=== PATIENT | female | born 1960 | race African-American/Black ===

== ENCOUNTER 2017-06-07 10:12 | Day surgery (SDC) | payer OTHER ==
[2017-06-07 11:32] VITALS: BMI 45.7
[2017-06-07 16:01] VITALS: TEMP 98
[2017-06-07 16:14] VITALS: PULSE 69
[2017-06-07 17:44] VITALS: BP 131/68
== END 2017-06-07 17:46 | disposition home or self-care (01) ==
LOC: JASU-SURG 10:12
PROVIDERS: ATTEND Urology
PROC: 0TF38ZZ Fragmentation in Right Kidney Pelvis, Via Natural or Artificial Opening Endoscopic (ICD-10-PCS; principal; 2017-06-07)
PROC: 0T768DZ Dilation of Right Ureter with Intraluminal Device, Via Natural or Artificial Opening Endoscopic (ICD-10-PCS; 2017-06-07)
DX: N20.0 Calculus of kidney (principal)
CPT/HCPCS: 76000-TC-FY; 94760

== ENCOUNTER 2017-11-01 08:46 | Day surgery (SDC) | payer OTHER ==
[2017-10-28 16:17] VITALS: BMI 46.7
[2017-11-01] MEDS ORDERED: MIDAZOLAM HCL 2 MG/2 ML SINGLE DOSE VIAL ONE ×2 (11:05→11:16)
[2017-11-01] MEDS ORDERED: DEXAMETHASONE SOD PHOSPHATE 4 MG/1 ML VIAL ONE (11:15)
--- NOTE | 2017-11-01 11:48 | OP ---
Operative Note - Note: Operative Date: 11/01/17 Pre-Operative Diagnosis: Right kidney stone Operation: Right ESWL Findings: 20 mm Right kidney lower pole stone Post-Operative Diagnosis: Same as Pre-op Surgeon: 2,Program Planners Anesthesia: Fractional Estimated Blood Loss (mls): 0
[2017-11-01] MEDS ORDERED: ONDANSETRON 4 MG/2 ML VIAL ONE (13:09)
[2017-11-01 14:03] VITALS: BP 110/76; PULSE 73; TEMP 97.8
--- NOTE | 2017-11-01 21:48 | OP ---
DATE OF OPERATION: 11/01/2017 PREOPERATIVE DIAGNOSIS: Right renal stone. POSTOPERATIVE DIAGNOSIS: Right renal stone. PROCEDURE: Right extracorporeal shock wave lithotripsy. ATTENDING: Govind Raman MD ANESTHESIA: Fractional. DESCRIPTION OF OPERATION: The patient was brought in the operating room and placed in supine position on the operating room table. Ultrasonography and fluoroscopy were performed. A 20-mm right lower pole stone was identified. Shock wave lithotripsy was then performed; 3000 impulses at 18 joules of power were administered to the stone. Excellent fragmentation of the stone was noted under real-time ultrasonography and fluoroscopy. No complications were noted. The disposition of the patient was to the recovery room. GOVIND RAMAN M.D. [id number]
== END 2017-11-01 14:12 | disposition home or self-care (01) ==
LOC: JASU-SURG 08:46
PROVIDERS: ATTEND Urology
PROC: 0TF3XZZ Fragmentation in Right Kidney Pelvis, External Approach (ICD-10-PCS; principal; 2017-11-01 10:15)
DX: N20.0 Calculus of kidney (principal)
CPT/HCPCS: 94760

== ENCOUNTER 2018-03-21 09:38 | Day surgery (SDC) | payer OTHER ==
[2018-03-21 09:54] VITALS: BMI 45.5
[2018-03-21] MEDS ORDERED: MIDAZOLAM HCL 2 MG/2 ML SINGLE DOSE VIAL ONE (12:15)
[2018-03-21] MEDS ORDERED: VECURONIUM BROMIDE 10 MG VIAL ONE (12:21)
[2018-03-21] MEDS ORDERED: PROPOFOL 20 ML ONE (12:21)
[2018-03-21] MEDS ORDERED: GENTAMICIN SO4 80 MG/2 ML VIAL ONE ×2 (12:38→12:44)
[2018-03-21] MEDS ORDERED: AMPICILLIN NA/SULBACTAM NA 1.5 GM VIAL ONE (12:38)
[2018-03-21] MEDS ORDERED: GENTAMICIN SO4 80 MG/2 ML VIAL IVPB ONE (12:41)
[2018-03-21] MEDS ORDERED: AMPICILLIN NA/SULBACTAM NA 1.5 GM VIAL IVPB ONE (12:41)
[2018-03-21] MEDS ORDERED: NEOSTIGMINE METHYLSULFATE 0.5 MG/1 ML - 10 ML MDV ONE (13:46)
[2018-03-21] MEDS ORDERED: ONDANSETRON 4 MG/2 ML VIAL IVPUSH PRN (14:06)
[2018-03-21] MEDS ORDERED: LACTATED RINGERS SOLUTION 1,000 ML IV SCH (14:15)
[2018-03-21] MEDS ORDERED: oxyCODONE HCL 5 MG TABLET PO PRN (16:20)
[2018-03-21] MEDS ORDERED: oxyCODONE HCL 5 MG TABLET ONE (16:25)
--- NOTE | 2018-03-21 16:26 | OP ---
Operative Note - Note: Operative Date: 03/21/18 Pre-Operative Diagnosis: right renal stones Operation: cystoscopy/laser lithotripsy of bladder stone/right ureteroscopic laser lithotripsy/right ureteral stent exchange Findings: bladder stone around distal stent measuring 5+ cm multiple large renal stones Post-Operative Diagnosis: Other (large bladder stone) Surgeon: James Marie Anesthesia: General Specimens Removed: bladder stones and right ureteral stent Drains & Tubes with Location: right ureteral stent Operative Report Dictated: Yes
[2018-03-21 16:47] VITALS: TEMP 97.8
[2018-03-21 17:56] VITALS: BP 137/78; PULSE 73
--- NOTE | 2018-03-21 19:55 | OP ---
DATE OF OPERATION: 03/21/2018 PREOPERATIVE DIAGNOSIS: Right renal stone. POSTOPERATIVE DIAGNOSIS: Right renal stone with bladder stone. ATTENDING: Govind Raman MD ANESTHESIA: General. DESCRIPTION OF OPERATION: The patient presents with a history of a staghorn calculus. The patient is status post lithotripsy and previous laser lithotripsy of the renal stone. Patient presents for another laser lithotripsy of the bulky stone. Patient understands all risks and benefits. The patient is brought in the operating room, placed in supine position on the operating room table. Anesthesia and preoperative antibiotics consisting of gentamicin and ampicillin are administered. The patient is then placed in the dorsal lithotomy position and prepped and draped in the usual sterile manner. Cystoscopy is performed, and a 5-plus-cm bladder stone is noted. This stone emanates from the distal J of the stent. The stone is extremely hard and required laser lithotripsy. The holmium laser was utilized, and the stone was lithotripsied and specimen sent for evaluation to Pathology. At this point, the right ureteral stent was brought out with mild resistance. A wire was then passed into the kidney under fluoroscopic visualization. A flexible ureteroscope was then taken to the level of the filling defects in the kidney. Multiple large stones were noted. The patient apparently makes continual stones with the catheter in place. Laser lithotripsy was started. However, due to the friability of the jones of the pelvis, visualization was poor. It was decided to leave the patient with a stent and to send the patient to a tertiary center for evaluation for percutaneous nephrolithotomy. Patient will be discharged home on p.o. antibiotics. There were no complications noted. Patient tolerated the procedure very well. GOVIND RAMAN M.D. [id number]
--- NOTE | 2018-03-23 17:06 | PATH ---
Surgical Pathology Report Patient Name: HAYDEE JASMINE [facility]. Rec. #: [id number] /Age/Gender: 1960 (Age: 58) / F Account: [id number] Location: [facility] SURGICAL Taken: 03/21/2018 Received: 03/22/2018 Reported: 03/23/2018 Physicians: James Marie Specimen(s) Received A: BLADDER CALCULI B: OLD STENT RIGHT SIDE Clinical History Right kidney stones/bladder stones Final Diagnosis A. BLADDER STONE, LASER LITHOTRIPSY: BLADDER CALCULI. MACROSCOPIC DIAGNOSIS. B. OLD STENT, RIGHT SIDE, REMOVAL: CONSISTENT WITH URETERAL STENT. MACROSCOPIC DIAGNOSIS. Electronically Signed Abeba Saavedra M.D. Gross Description A. Received fresh labeled "bladder stone," is a 4.0 x 2.5 x 0.5 cm aggregate of hawley, irregular to fragmented calculi. The specimen is sent for chemical analysis. B. Received fresh labeled "old stent right side," is a 33 cm in length blue-green, coiled portion of tubing, consistent with a ureteral stent. No soft tissue is present. No sections are submitted, gross only. /03/22/2018 saudi03/22/2018
[2018-03-28 12:16] LABS: URIC ACID 100 % (.); WEIGHT 2355.8 mg (.)
== END 2018-03-21 17:56 | disposition home or self-care (01) ==
LOC: JASU-SURG 09:38
PROVIDERS: ATTEND Urology
PROC: 0TCB8ZZ Extirpation of Matter from Bladder, Via Natural or Artificial Opening Endoscopic (ICD-10-PCS; principal; 2018-03-21 10:00)
DX: N20.0 Calculus of kidney (principal); N21.0 Calculus in bladder
CPT/HCPCS: 36415; 76000-TC-FY; 82360; 88300-TC; 94760

== ENCOUNTER 2019-02-03 10:02 | Inpatient (IN) | payer OTHER ==
--- NOTE | 2019-02-03 10:15 | PDOC ---
History of Present Illness <Angie Márquez - Last Filed: 02/03/19 16:18> - General History Source: Patient Exam Limitations: No Limitations - History of Present Illness Initial Comments: 59-year-old female with past medical history of hypertension, hyperlipidemia, MS (2010, no stent), CVA (2010, no deficits), right ureter stent, nephrolithiasis requiring lithotripsy presented to the emergency department for sub sternal chest pain beginning today, associated with bilateral lower extremity swelling and increasing shortness of breath and dyspnea on exertion for three months. Patient reported she has noticed for the last two weeks her shortness of breath has been increasing, to the point that even walking downhill is hard for her. She reported she saw her primary care doctor times when we could go for The swelling, was told she may have problems with her veins , and receive a referral to have a study performed, which she has not had performed yet. She reported that when she developed a chest pain and shortness of breath combine today, she was prompted to come to the emergency department. She also mentioned that she noticed master her right breast times one week ago, but she notices after her primary care appointment. She requested to have a mammogram performance. She also requested to have a CAT scan of her abdomen performed, as she has an outpatient CAT scan to planned by her urologist. She denied flank pain, abdominal pain. She reported she has had hematuria x1 month. Pt reported drinking 1 glass of wine a night. ROS General: denied fever, chills, generalized weakness. HEENT: denied sore throat, rhinorrhea, ear pain. Cardiovascular: admitted to chest pain, lower extremity swelling. denied palpitations, syncope, diaphoresis. Respiratory: admitted to shortness of breath, MCGRAW, orthopnea. denied cough, sputum production, hemoptysis. Gastrointestinal: denied abdominal pain, nausea, vomiting, diarrhea, constipation, blood in stool. Genitourinary: denied dysuria, increased urinary frequency, hematuria, urinary incontinence, flank pain. Back: denied back pain. Musculoskeletal: denied joint pain, muscle pain, joint swelling. Neurological: denied headache, dizziness, numbness, tingling, weakness. Integumentary: denied rash, laceration, abrasion. Hematologic/Lymphatic: denied bruising or bleeding. PE Constitutional: Well-nourished, Well-developed, appearing stated age. Obese. HEENT: head is normocephalic, atraumatic. EOMI. PERRLA. Neck: supple. Full ROM. Cardiovascular: systolic murmur, pt reported no history of murmur. regular heart rhythm. no pericardial friction rub. Respiratory: clear to auscultation bilaterally. slight expiratory wheeze. no crackles, rhonchi. no stridor. Chest: 2x2 cm hard nontender mass to right breast in the upper inner quadrant. no masses palpated in left breast. Gastrointestinal: soft, nontender. normal bowel sounds. no rebound, guarding, masses. Extremities: peripheral pulses intact. 4+ pitting edema bilaterally. calf tenderness bilaterally. Neurological: CN 2-12 grossly intact. moves all four extremities. Psych: awake, alert, oriented x3. follows commands. answers questions appropriately. <Johanne Vences - Last Filed: 02/03/19 16:28> - General Chief Complaint: Shortness of Breath Stated Complaint: Shortness of Breath Time Seen by Provider: 02/03/19 10:14 Past History <Angie Márquez - Last Filed: 02/03/19 16:18> - Psycho Social/Smoking Cessation Hx Smoking Status: No Smoking History: Former smoker Have you smoked in the past 12 months: No Number of Cigarettes Smoked Daily: 0 If you are a former smoker, when did you quit?: 8yrs Hx Alcohol Use: Yes (wine/social) Drug/Substance Use Hx: No Substance Use Type: Alcohol Hx Substance Use Treatment: No <Johanne Vences - Last Filed: 02/03/19 16:28> - Past Medical History Allergies/Adverse Reactions: Allergies Allergy/AdvReac Type Severity Reaction Status Date / Time No Known Allergies Allergy Verified 02/03/19 10:22 Home Medications: Ambulatory Orders Amlodipine Besylate 10 mg PO DAILY 06/04/17 Multivitamin [One-Daily Multi-Vitamin] 1 each PO DAILY 03/21/18 Atorvastatin Ca [Lipitor] 40 mg PO HS 02/03/19 Hydralazine HCl 30 mg PO DAILY 02/03/19 *Physical Exam - Vital Signs Last Vital Signs Temp Pulse Resp BP Pulse Ox 98.7 F 90 18 133/58 L 99 02/03/19 10:16 02/03/19 14:40 02/03/19 14:40 02/03/19 14:40 02/03/19 14:40 <YulisaAngie - Last Filed: 02/03/19 16:18> Procedures - Bedside Ultrasound Bedside Ultrasound: Cardiac Remarks: Bedside POCUS Cardiac US showed good global squeeze, no RV dilation, no septal bowing. Bedside POCUS Lung US showed positive lung sliding bilaterally. Right lung jasmine showed few B-lines, none seen on the left. Negative spine sign bilaterally. US were performed by Dr. Farnsworth, PGY2 EM Resident, and Dr. Márquez, US Fellowship Trained EM Attending. <Johanne Vences - Last Filed: 02/03/19 16:28> Heart Score/ECG Review - History History: Slightly suspicious - Electrocardiogram EKG: Non specific repolarization disturbance - Age Age: 45-65 - Risk Factors Risk Factors Heart Score: Yes Hx Hypercholesterolemia, Yes Hx Hypertension, Yes Hx Diabetes, Yes Hx Obesity Based on the list above the patient has:: >/=3 risk factors or Hx atherosclerotic disease - Troponin Troponin: </= normal limit - Score Heart Score - Total: 4 <Johanne Vences - Last Filed: 02/03/19 16:28> ED Treatment Course - LABORATORY CBC & Chemistry Diagram: 02/03/19 10:20 02/03/19 10:20 - ADDITIONAL ORDERS Additional order review: Laboratory Results 02/03/19 02/03/19 02/03/19 10:20 10:20 10:20 PT with INR 12.50 INR 1.06 PTT (Actin FS) 30.0 Sodium 138 Potassium 3.8 Chloride 99 Carbon Dioxide 30 Anion Gap 10 BUN 5.4 L Creatinine 0.6 Est GFR (CKD-EPI)AfAm 114.82 Est GFR (CKD-EPI)NonAf 99.07 Random Glucose 82 Calcium 8.7 Phosphorus 2.8 Magnesium 2.2 Total Bilirubin 1.8 H AST 572 H ALT 190 H Alkaline Phosphatase 423 H Troponin I < 0.02 B-Natriuretic Peptide Total Protein 7.4 Albumin 2.8 L TSH 6.09 H Free T4 0.87 02/03/19 10:18 PT with INR INR PTT (Actin FS) Sodium Potassium Chloride Carbon Dioxide Anion Gap BUN Creatinine Est GFR (CKD-EPI)AfAm Est GFR (CKD-EPI)NonAf Random Glucose Calcium Phosphorus Magnesium Total Bilirubin AST ALT Alkaline Phosphatase Troponin I B-Natriuretic Peptide 158.1 H Total Protein Albumin TSH Free T4 02/03/19 10:20 RBC 3.15 L MCV 102.4 H MCHC 33.5 RDW 14.3 MPV 8.7 Neutrophils % 66.4 Lymphocytes % 18.4 Monocytes % 14.1 H Eosinophils % 0.4 Basophils % 0.7 - RADIOLOGY Radiology Studies Ordered: Category Date Time Status CHEST X-RAY PORTABLE* [RAD] Stat Radiology 02/03/19 10:24 Completed - Medications Given in the ED: ED Medications Discontinued Medications Generic Name Dose Route Start Last Admin Trade Name Adali PRN Reason Stop Dose Admin Aspirin 324 mg 02/03/19 11:11 02/03/19 11:23 Asa - PO 02/03/19 11:12 324 mg ONCE ONE Administration <Angie Márquez - Last Filed: 02/03/19 16:18> - LABORATORY CBC & Chemistry Diagram: 02/03/19 10:20 02/03/19 10:20 <Johanne Vences - Last Filed: 02/03/19 16:28> Medical Decision Making - Medical Decision Making 59 year old female with above PMH presented to ED for chest pain since this AM, associated with LE swelling/MCGRAW/orthopnea x3 months worsening over 2 weeks. Also c/o right breast mass. Initial Vital Signs Temp Pulse Resp BP Pulse Ox 98.7 F 99 H 20 137/71 90 L 02/03/19 10:16 02/03/19 10:16 02/03/19 10:16 02/03/19 10:16 02/03/19 10:16 Afebrile. Borderline tachycardia. No tachypnea. Hypertensive. Hypoxia on room air. -Pt placed on NC 2L with resolution of hypoxia Labs ordered: CBC, CMP, Troponin, BNP, TSH Imaging ordered: CTA chest, CXR, B/L duplex LE US Medications ordered: ASA 324 mg PO chew once EKG performed at 1012: rate 99, regular rhythm, left axis, normal intervals, QTc 444, no acute ST changes. CXR report: Name: HAYDEE JASMINE DEPARTMENT OF RADIOLOGY Phys: Angie Márquez MD : 1960 Age: 59 Sex: F [facility] Acct: [id number] Loc: [address] Exam Date: 02/03/19 Status: [place] Unit Number: [id number] EXAM#: TYPE/EXAM: RESULT: [id number] RAD/CHEST X-RAY PORTABLE* Evaluate for infection, edema. Semierect portable chest x-ray compared with October 05, 2009. Cardiomegaly. Left lower lung zone partially obscured by the cardiac silhouette. No evidence of effacement of the left diaphragm, blunting of the left costophrenic angle. Elevated right diaphragm. Mildly uncoiled thoracic aorta. No evidence of congestive changes, pulmonary infiltrates, pulmonary edema. No pneumothorax, or large pleural effusion is seen within limitation of examination. EKG leads are noted. The visualized osseous structures appear intact. Impression. Cardiomegaly. No evidence of pulmonary edema, CHF, pulmonary infiltrates. Reported By: Yousuf Lloyd MD 02/03/19 1049 02/03/19 11:51 Laboratory Last Values WBC 4.4 K/mm3 (4.0-10.0) 02/03/19 10:20 RBC 3.15 M/mm3 (3.60-5.2) L 02/03/19 10:20 Hgb 10.8 GM/dL (10.7-15.3) 02/03/19 10:20 Hct 32.2 % (32.4-45.2) L 02/03/19 10:20 MCV 102.4 fl (80-96) H 02/03/19 10:20 MCH 34.3 pg (25.7-33.7) H 02/03/19 10:20 MCHC 33.5 g/dl (32.0-36.0) 02/03/19 10:20 RDW 14.3 % (11.6-15.6) 02/03/19 10:20 Plt Count 218 K/MM3 (134-434) 02/03/19 10:20 MPV 8.7 fl (7.5-11.1) 02/03/19 10:20 Absolute Neuts (auto) 2.9 K/mm3 (1.5-8.0) 02/03/19 10:20 Neutrophils % 66.4 % (42.8-82.8) 02/03/19 10:20 Lymphocytes % 18.4 % (8-40) 02/03/19 10:20 Monocytes % 14.1 % (3.8-10.2) H 02/03/19 10:20 Eosinophils % 0.4 % (0-4.5) 02/03/19 10:20 Basophils % 0.7 % (0-2.0) 02/03/19 10:20 Nucleated RBC % 1 % (0-0) H 02/03/19 10:20 PT with INR 12.50 SEC (9.7-13.0) 02/03/19 10:20 INR 1.06 (0.83-1.09) 02/03/19 10:20 PTT (Actin FS) 30.0 SECONDS (25.2-36.5) 02/03/19 10:20 Sodium 138 mmol/L (136-145) 02/03/19 10:20 Potassium 3.8 mmol/L (3.5-5.1) 02/03/19 10:20 Chloride 99 mmol/L (98-107) 02/03/19 10:20 Carbon Dioxide 30 mmol/L (21-32) 02/03/19 10:20 Anion Gap 10 MMOL/L (8-16) 02/03/19 10:20 BUN 5.4 mg/dL (7-18) L 02/03/19 10:20 Creatinine 0.6 mg/dL (0.55-1.3) 02/03/19 10:20 Est GFR (CKD-EPI)AfAm 114.82 02/03/19 10:20 Est GFR (CKD-EPI)NonAf 99.07 02/03/19 10:20 Random Glucose 82 mg/dL (74-106) 02/03/19 10:20 Calcium 8.7 mg/dL (8.5-10.1) 02/03/19 10:20 Phosphorus 2.8 mg/dL (2.5-4.9) 02/03/19 10:20 Magnesium 2.2 mg/dL (1.8-2.4) 02/03/19 10:20 Total Bilirubin 1.8 mg/dL (0.2-1) H 02/03/19 10:20 AST 572 U/L (15-37) H 02/03/19 10:20 ALT 190 U/L (13-61) H 02/03/19 10:20 Alkaline Phosphatase 423 U/L (45-117) H 02/03/19 10:20 Troponin I < 0.02 ng/ml (0.00-0.05) 02/03/19 10:20 B-Natriuretic Peptide 158.1 pg/ml (5-125) H 02/03/19 10:18 Total Protein 7.4 g/dl (6.4-8.2) 02/03/19 10:20 Albumin 2.8 g/dl (3.4-5.0) L 02/03/19 10:20 TSH 6.09 uIU/ml (0.358-3.74) H 02/03/19 10:20 Labs ordered: Hepatitis Panel, Free T4 and Free T3, UA, UDS Imaging ordered: RUQ US 02/03/19 15:12 US report: Name: HAYDEE JASMINE DEPARTMENT OF RADIOLOGY Phys: Johanne Vences RESIDENT : 1960 Age: 59 Sex: F [facility] Acct: [id number] Loc: [address] Exam Date: 02/03/19 Status: [place] [address] Unit Number: [id number] EXAM#: TYPE/EXAM: RESULT: [id number] US/DUPLEX VASCUL US-2LEGS Bilateral lower extremity swelling, left more the right Bilateral leg color Doppler and duplex venous ultrasound Grayscale, pulsed Doppler and color Doppler interrogation of both lower extremities deep venous system was performed. The common femoral vein , femoral vein, popliteal and posterior tibial vein were identified, bilaterally with a normal phasic wave form, adequate compressibility and adequate response to augmentation. Visualized portion of the greater saphenous and deep femoral vein are patent No Nicole's cyst is identified in the popliteal fossa, bilaterally. There is soft tissue swelling in the popliteal fossa, bilaterally. Impression: There is no evidence of deep venous thromboses in both lower extremities. Reported By: Joseph Wilson MD 02/03/19 1448 02/03/19 15:17 RUQ US report: Name: HAYDEE JASMINE DEPARTMENT OF RADIOLOGY Phys: Johanne Vences RESIDENT : 1960 Age: 59 Sex: F [facility] Acct: [id number] Loc: [facility] [address] [place] [address] Exam Date: 02/03/19 Status: [place] [address] Unit Number: [id number] EXAM#: TYPE/EXAM: RESULT: [id number] US/ABDOMEN US -LIMITED Elevated liver function tests Right upper abdomen ultrasound. Examination is limited due to the patient's body habitus. The liver measures 19.6 cm in sagittal length with a moderately dense and coarse echotexture. Gallbladder is adequately distended without intraluminal stones or thickening of its wall. No intra or extrahepatic bile duct dilatation is seen. The right kidney measures 12 cm sagittal length with a nonobstructing stone in its lower pole measuring 1.3 x 0.9 cm. Limited visualization of the pancreas. Visualized portion of the proximal abdominal aorta and inferior vena cava appear unremarkable. Normal flow in the main portal vein. IMPRESSION: Hepatomegaly with fatty infiltration versus hepatic disease. Please correlate with liver enzymes. No gallstones identified. Nonobstructing right renal lower pole stone measuring 1.3 x 0.9 cm. Limited visualization of the pancreas. Reported By: Joseph Wilson MD 02/03/19 8405 CTA chest report: Name: HAYDEE JASMINE DEPARTMENT OF RADIOLOGY Phys: Johanne Vences RESIDENT : 1960 Age: 59 Sex: F [facility] Acct: [id number] Loc: [facility] [address] [place] [address] Exam Date: 02/03/19 Status: [place] [address] Unit Number: [id number] EXAM#: TYPE/EXAM: RESULT: [id number] CT/CHEST CTA Chest pain. Tachycardia. History of right breast mass. Hypoxia CT scan of the chest following intravenous contrast. A post intravenous contrast CT angiogram of the chest was performed utilizing pulmonary embolus protocol. Coronal/ sagittal reconstruction images were obtained. 94 cc of Omnipaque 350 was intravenously injected No prior CT scan of the chest is available for comparison. Compared to prior chest x-ray done earlier on the same date. No gross filling defect is seen within the main pulmonary artery and its proximal branches, bilaterally. The thoracic and visualized portion of the upper abdominal aorta is normally enhanced without evidence of aneurysmal dilatation or dissection. The heart is borderline in size. No gross mediastinal or hilar enlarged lymph nodes are identified. There are minimal bibasal atelectatic changes. The lung is otherwise clear. No pneumothorax or pleural effusion is seen, bilaterally. In the included upper abdomen, the liver is borderline in size measuring 17.5 cm in craniocaudal length with diffuse decreased attenuation compatible with a fatty liver. A few tiny gallstones are layering in the gallbladder neck region. There are surgical sutures around the stomach suggestive of gastric sleeve surgery. Correlate clinically. Partially included right kidney with a nephrostomy tube identified and without gross evidence of hydronephrosis. Moderate elevation of the right hemidiaphragm. Visualized osseous structures appear intact with mild degenerative anterior spondylosis IMPRESSION: There is no gross evidence of a pulmonary embolus within the main pulmonary artery and its proximal branches, bilaterally. Borderline cardiomegaly. No enlarged mediastinal or hilar lymph nodes are identified. Mild interstitial thickening and minimal bibasal atelectatic changes without evidence of focal infiltrates. Moderate elevation of the right hemidiaphragm. Borderline hepatomegaly with diffuse fatty infiltration. Partially included right kidney with a nephrostomy tube in place and without gross evidence of hydronephrosis Reported By: Joseph Wilson MD 02/03/19 1512 02/03/19 16:27 Pt still has chest pain, still is O2 dependent, still has MCGRAW. Pt signed out to admitting team, Dr. Hamilton, pt to be admitted under Dr. Rivera 's care. Pending admission. <Johanne Vences - Last Filed: 02/03/19 16:28> Discharge - Admission Yes <Angie Márquez - Last Filed: 02/03/19 16:18> - Discharge Information Problems reviewed: Yes - Admission Yes <Johanne Vences - Last Filed: 02/03/19 16:28> - Discharge Information Clinical Impression/Diagnosis: Elevated LFTs, MCGRAW (dyspnea on exertion), Chest pain, Elevated TSH, Fatty liver Condition: Stable - Follow up/Referral Referrals: Nigel Wheatley [Primary Care Provider] -
--- NOTE | 2019-02-03 10:20 | PDOC ---
Attending Attestation - Resident Resident Name: Johanne Vences - ED Attending Attestation I have performed the following: I have examined & evaluated the patient, The case was reviewed & discussed with the resident, I agree w/resident's findings & plan - HPI HPI: 02/03/19 10:20 59-year-old female with history of kidney stones requiring stent most recently in February 2018, HTN, HLD, ND/CAD s/p PCI, CVA presenting with shortness of breath with exertion x several weeks, a/w BLE swelling chest pain this morning +LE swelling, saw PMD several weeks ago +right breast mass 02/03/19 10:42 02/03/19 12:44 - Physicial Exam PE: 02/03/19 10:19 Agree with the resident's HPI and PE as documented in the electronic medical record. NAD, well appearing, morbidly obese, EOMI, PERRL, nl conjunctiva, anicteric; neck supple. lungs diminished lung volumes, poor inspiratory effort. RRR, + holosystolic murmur, abdomen soft nontender. no rebound, guarding, right lateral chest wall skin break down under pannus. +right 5 o'clock firm breast mass palpated. Back nontender. [place] ROS[place] x4, no focal neuro deficits. 4+ bilateral pitting peripheral edema, venous dermatitis changes, left swelling > right. normal color for ethnicity, WWP. diffuse tenderness in BLE. 02/03/19 12:45 02/03/19 16:13 - Medical Decision Making 02/03/19 10:44 Vital Signs Temp Pulse Resp BP Pulse Ox 98.7 F 99 H 20 137/71 90 L 02/03/19 10:16 02/03/19 10:16 02/03/19 10:16 02/03/19 10:16 02/03/19 10:16 vitals with borderline hypoxia 90% on RA, placed on O2. could be underlying obesity/poor respiratory effort, undiagnosied cardiopulm condition - initiate workup here and admission DDx chest pain/SOB: ACS, coronary vasospasm, NSTEMI, arrhythmia, unstable angina , PE/DVT, dissection, PUD, esophageal spasm, GERD, gastritis, costochondritis, pneumonia, pleurisy, pericarditis/myocarditis. dehydration, electrolyte/ metabolic derangements. pneumonia, CHF, lymphedema, bronchitis, pulm edema, Pickwickian, hypoventilation syndrome Historically not abrupt in onset, tearing or ripping, pulses symmetric, no evidence of aortic dissection. EKG normal sinus rhythm, as documented. Chest pain HEART score 3 which denotes Low risk and probability for ACS, less than 1% risk for MACE at 4-6 wks, however given age, obesity and comorbidities chest pain rule out. Abdominal ultrasound with hepatomegaly and fatty liver versus liver disease, correlates with elevated LFTs. No stones, nonobstructing right renal lower pole stone is noted, unlikely to be the cause of symptoms as this is nonobstructing and also within the kidney system Chest x-ray is unremarkable, cardiomegaly but no evidence of infiltrate, edema or pulmonary vascular congestion. This correlates with the lung ultrasound with primarily a lines and lung sliding without evidence of pulmonary vascular congestion or effusion. Normal [id number] ultrasound echocardiogram with normal ejection fraction no effusion, RV less than LV CT angios chest is negative for PE, borderline cardiomegaly, mild interstitial thickening and bibasilar atelectasis without infiltrates or signs of infection. Fatty infiltration and hepatomegaly is noted, nephrostomy tube is also in place no dvt on duplex. incidental breast mass noted to right, which pt noted several weeks ago after her PMD appt; outpatient mammogram indicated, last was one year ago. admit tele obs for chest pain rule out, ekg/serial trop, MCGRAW workup, hypoxia, medical management and further care. 02/03/19 16:16 Heart Score/ECG Review - History History: Slightly suspicious - Electrocardiogram EKG: Normal - Age Age: 45-65 - Risk Factors Risk Factors Heart Score: Yes Hx Hypercholesterolemia, Yes Hx Hypertension, Yes Hx Obesity Based on the list above the patient has:: >/=3 risk factors or Hx atherosclerotic disease - Troponin Troponin: </= normal limit - Score Heart Score - Total: 3 #1 ECG reviewed & interpreted by me at: 10:10 General ECG Interpretation: Sinus Rhythm, Normal Rate, Normal Intervals Compared to previous ECG there are: Previous ECG unavail 02/03/19 10:25 EKG normal sinus rhythm 90 bpm, no interval abnormalities, narrow QRS, ST and T wave segments and morphology normal. Nonspecific T wave abnormalities
[2019-02-03 11:06] LABS: BASO % 0.7 % (0-2.0); EOS % 0.4 % (0-4.5); HEMATOCRIT 32.2 % (32.4-45.2); HEMOGLOBIN 10.8 GM/dL (10.7-15.3); LYMPH % 18.4 % (8-40); MCH 34.3 pg (25.7-33.7); MCHC 33.5 g/dl (32.0-36.0); MEAN CELL VOLUME 102.4 fl (80-96); MEAN PLT VOLUME 8.7 fl (7.5-11.1); MONO % 14.1 % (3.8-10.2); NEUT % 66.4 % (42.8-82.8); PLATELET COUNT 218 K/MM3 (134-434); RBC 3.15 M/mm3 (3.60-5.2); RDW 14.3 % (11.6-15.6); WHITE BLOOD COUNT 4.4 K/mm3 (4.0-10.0)
[2019-02-03] MEDS ORDERED: ASPIRIN 81 MG CHEWABLE TABLETS PO ONE (11:11)
[2019-02-03 11:16] LABS: INR 1.06 (0.83-1.09); PROTHROMBIN TIME (PATIENT) 12.5 SEC (9.7-13.0)
[2019-02-03] MEDS ORDERED: ASPIRIN 81 MG CHEWABLE TABLETS ONE (11:18)
[2019-02-03 11:34] LABS: ALBUMIN 2.8 g/dl (3.4-5.0); BILIRUBIN,TOTAL 1.8 mg/dL (0.2-1); BLOOD UREA NITROGEN 5.4 mg/dL (7-18); CALCIUM 8.7 mg/dL (8.5-10.1); CREATININE 0.6 mg/dL (0.55-1.3); MAGNESIUM 2.2 mg/dL (1.8-2.4); PHOSPHOROUS 2.8 mg/dL (2.5-4.9); POTASSIUM 3.8 mmol/L (3.5-5.1); TOT PROT 7.4 g/dl (6.4-8.2)
--- NOTE | 2019-02-03 18:00 | HP ---
CHIEF COMPLAINT: Chest Pain + SOB PCP: Dr Wheatley HISTORY OF PRESENT ILLNESS: Pt is a 59 y/o f with a significant past medical history of HTN, HLD, IA ( 2010 no stent), CVA (2009) who presented to [facility] due to chest pain. Pt endorses chest pain commenced early this am. Pt was not exerting herself at time of pain onset. Pain is described as a stabbing sensation and is a 7/10 in severity. Pain is intermittent. Pain does not radiate anywhere. Pt states her current pain is not similar to the pain she experienced during her previous IA. Denies dizziness, LOC, nausea/vomiting, numbness or tingling. Of note, pt states that for the past ~1 month she has been progressively short of breath. During this time, she has also noticed increasing lower extremity edema bilaterally, right more so than left. ER course was notable for: (1) Trop negative (2) CTA--> No pulmonary embolism (3) Abdomen U/S: Hepatomegally with fatty liver infiltration Recent Travel: Denies PAST MEDICAL HISTORY: As Above PAST SURGICAL HISTORY: 2 C Sections, "tummy tuck" Social History: Former tobacco smoker. Smoked ~1/2 pack quit ~10 years ago. Drinks 3 glasses of wine daily Allergies No Known Allergies Allergy (Verified 02/03/19 10:22) HOME MEDICATIONS: Home Medications Medication Instructions Recorded Amlodipine Besylate 10 mg PO DAILY 06/04/17 Multivitamin [One-Daily 1 each PO DAILY 03/21/18 Multi-Vitamin] Atorvastatin Ca [Lipitor] 40 mg PO HS 02/03/19 Hydralazine HCl 30 mg PO DAILY 02/03/19 REVIEW OF SYSTEMS CONSTITUTIONAL: Absent: fever, chills, diaphoresis, generalized weakness, malaise, loss of appetite, weight change HEENT: Absent: rhinorrhea, nasal congestion, throat pain, throat swelling, difficulty swallowing, mouth swelling, ear pain, eye pain, visual changes CARDIOVASCULAR: Absent: chest pain, syncope, palpitations, irregular heart rate, lightheadedness , peripheral edema RESPIRATORY: PRESENT shortness of breath, dyspnea with exertion GASTROINTESTINAL: Absent: abdominal pain, abdominal distension, nausea, vomiting, diarrhea, constipation, melena, hematochezia GENITOURINARY: Absent: dysuria, frequency, urgency, hesitancy, hematuria, flank pain, genital pain MUSCULOSKELETAL: Absent: myalgia, arthralgia, joint swelling, back pain, neck pain SKIN: Absent: rash, itching, pallor HEMATOLOGIC/IMMUNOLOGIC: Absent: easy bleeding, easy bruising, lymphadenopathy, frequent infections ENDOCRINE: Absent: unexplained weight gain, unexplained weight loss, heat intolerance, cold intolerance NEUROLOGIC: Absent: headache, focal weakness or paresthesias, dizziness, unsteady gait, seizure, mental status changes, bladder or bowel incontinence PSYCHIATRIC: Absent: anxiety, depression, suicidal or homicidal ideation, hallucinations. PHYSICAL EXAMINATION Vital Signs - 24 hr 02/03/19 02/03/19 02/03/19 10:13 10:16 14:40 Temperature 98.7 F Pulse Rate 99 H Pulse Rate [ 90 Apical] Respiratory 20 18 Rate Blood Pressure 137/71 Blood Pressure 133/58 L [Left Arm] Blood Pressure [Right Arm] O2 Sat by Pulse 97 90 L 99 Oximetry (%) 02/03/19 17:44 Temperature 98 F Pulse Rate Pulse Rate [ 107 H Apical] Respiratory 19 Rate Blood Pressure Blood Pressure [Left Arm] Blood Pressure 154/80 [Right Arm] O2 Sat by Pulse 96 Oximetry (%) GENERAL: nad HEAD: at/nc EYES: eomi sclera clear EARS, NOSE, THROAT: mmm NECK: supple LUNGS: bibasilar rales appreciated HEART: Regular rate and rhythm, normal S1 and S2 without murmur, rub or gallop. BREAST: Chaperoned by Dr Johanne Vences. Nodules appreciated left breast. No axillary lymphadenopathy appreciated. No redness or erythema around palpable nodule. ABDOMEN: obese NDNT LOWER EXTREMITIES: 3+ pitting edema bilaterally NEUROLOGICAL: Cranial nerves II-XII intact. Normal speech. PSYCHIATRIC: Cooperative. Good eye contact. Appropriate mood and affect. SKIN: Warm, dry, normal turgor, no rashes or lesions noted, normal capillary refill. Laboratory Results - last 24 hr 02/03/19 02/03/19 02/03/19 10:18 10:20 10:20 WBC 4.4 RBC 3.15 L Hgb 10.8 Hct 32.2 L MCV 102.4 H MCH 34.3 H MCHC 33.5 RDW 14.3 Plt Count 218 MPV 8.7 Absolute Neuts (auto) 2.9 Neutrophils % 66.4 Lymphocytes % 18.4 Monocytes % 14.1 H Eosinophils % 0.4 Basophils % 0.7 Nucleated RBC % 1 H PT with INR INR PTT (Actin FS) Sodium 138 Potassium 3.8 Chloride 99 Carbon Dioxide 30 Anion Gap 10 BUN 5.4 L Creatinine 0.6 Est GFR (CKD-EPI)AfAm 114.82 Est GFR (CKD-EPI)NonAf 99.07 Random Glucose 82 Calcium 8.7 Phosphorus 2.8 Magnesium 2.2 Total Bilirubin 1.8 H AST 572 H ALT 190 H Alkaline Phosphatase 423 H Troponin I B-Natriuretic Peptide 158.1 H Total Protein 7.4 Albumin 2.8 L TSH 6.09 H Free T4 02/03/19 02/03/19 02/03/19 10:20 10:20 17:00 WBC RBC Hgb Hct MCV MCH MCHC RDW Plt Count MPV Absolute Neuts (auto) Neutrophils % Lymphocytes % Monocytes % Eosinophils % Basophils % Nucleated RBC % PT with INR 12.50 INR 1.06 PTT (Actin FS) 30.0 Sodium Potassium Chloride Carbon Dioxide Anion Gap BUN Creatinine Est GFR (CKD-EPI)AfAm Est GFR (CKD-EPI)NonAf Random Glucose Calcium Phosphorus Magnesium Total Bilirubin AST ALT Alkaline Phosphatase Troponin I < 0.02 < 0.02 B-Natriuretic Peptide Total Protein Albumin TSH Free T4 0.87 Abdominal US: fatty infiltration of liver, hepatomegaly, no gall stones Chest CTA: No PE, atelectasis, elevation of R hemidiaphragm, hepatomegaly with fatty infiltration. LOWER EXT US: no evidence for DVT ASSESSMENT/PLAN: Pt is a 59 y/o f with a significant past medical history of HTN, HLD, IA (2010 no stent), CVA (2009) who presented to [facility] due to chest pain. #SOB 2/2 likely CHF exacerbation -BNP slightly elevated at 158.1 however pt is obese and BNP levels may not be as high to indicate an exacerbation -Echocardiogram to assess for wall motion abnormalities -Trop negative. Trend -Cardiology Consult -tele monitoring -Strict Is and Os -CMP and CBC in am -1 time Furosemide 20 IV. #Transaminitis possibly secondary to fatty liver infiltration -Hepatitis Serologies pending. Consider Gi Consult Macrocytic anemia present on CBC, send folate, B12, send alcohol levels, trend LFTs #HTN -Will resume Amlodipine. Consider changing to an alternative agent ads pt with increasing pedel edema Hydralazine on medication list in EMR states once daily. however Hydralazine usually a TID medication. Will need to reconcile medication with patients pharmacy- [facility] #HLD Hold statin for now in view of LFTs #FEN -No standing fluids -Monitor electrolytes -Sodium Restricted Diet DVT ppx: Heparin SQ Visit type - Emergency Visit Emergency Visit: Yes ED Registration Date: 02/03/19 Care time: The patient presented to the Emergency Department on the above date and was hospitalized for further evaluation of their emergent condition. - New Patient This patient is new to me today: Yes Date on this admission: 02/03/19 - Critical Care Critical Care patient: No ATTENDING PHYSICIAN STATEMENT I saw and evaluated the patient. I reviewed the resident's note and discussed the case with the resident. I agree with the resident's findings and plan as documented. SUBJECTIVE: OBJECTIVE: ASSESSMENT AND PLAN:
--- NOTE | 2019-02-03 20:46 | PN ---
Teaching Attending Note Name of Resident: Amado Hamilton ATTENDING PHYSICIAN STATEMENT I saw and evaluated the patient. I reviewed the resident's note and discussed the case with the resident. I agree with the resident's findings and plan as documented. 59 year old AA female history of CAD, CVA with no deficits, HTN, HLD, morbid obesity, nephrolithiasis presents with substernal CP which started this morning. Patient endorses for the past few weeks she noticed LE edema which her primary care physician told her it was venous stasis. During this time patient also experienced SOB on exertion and limited exercise tolerance due to breathlessness and has noticed worsening of her SOB over the past 2 weeks. Denies drug use, endorses occasional wine, former smoker years ago. Denies ever having PCI or stent placement and has managed her CAD medically. Bedside echo in ED demonstrated good global squeeze, no RV dilatation, no septal bowing. Lung US suggestive of some B lines in R lung field. Vital Signs - 24 hr 02/03/19 02/03/19 02/03/19 10:13 10:16 14:40 Temperature 98.7 F Pulse Rate 99 H Pulse Rate [ 90 Apical] Respiratory 20 18 Rate Blood Pressure 137/71 Blood Pressure 133/58 L [Left Arm] Blood Pressure [Right Arm] O2 Sat by Pulse 97 90 L 99 Oximetry (%) 02/03/19 02/03/19 17:44 20:08 Temperature 98 F 98.9 F Pulse Rate 94 H Pulse Rate [ 107 H Apical] Respiratory 19 20 Rate Blood Pressure 135/65 Blood Pressure [Left Arm] Blood Pressure 154/80 [Right Arm] O2 Sat by Pulse 96 96 Oximetry (%) PE VS stable. GENERAL APPEARANCE: Well developed, well nourished, alert and cooperative, morbidly obese. HEAD: normocephalic, atraumatic. EYES: PERRL, EOMI. vision is grossly intact. NECK: Neck supple, non-tender without lymphadenopathy, no JVD. CARDIAC: S1, S2+, RRR, CAROL+ LUNGS: bibasilar crackles+, no wheezing ABDOMEN: Positive bowel sounds. Soft, morbidly obese, non-tender. No guarding or rebound. EXTREMITIES: 2+ pitting edema LE b/l SKIN: Skin normal color, texture and turgor with no lesions or eruptions. Laboratory Results - last 24 hr 02/03/19 02/03/19 02/03/19 10:18 10:20 10:20 WBC 4.4 RBC 3.15 L Hgb 10.8 Hct 32.2 L MCV 102.4 H MCH 34.3 H MCHC 33.5 RDW 14.3 Plt Count 218 MPV 8.7 Absolute Neuts (auto) 2.9 Neutrophils % 66.4 Lymphocytes % 18.4 Monocytes % 14.1 H Eosinophils % 0.4 Basophils % 0.7 Nucleated RBC % 1 H PT with INR INR PTT (Actin FS) Sodium 138 Potassium 3.8 Chloride 99 Carbon Dioxide 30 Anion Gap 10 BUN 5.4 L Creatinine 0.6 Est GFR (CKD-EPI)AfAm 114.82 Est GFR (CKD-EPI)NonAf 99.07 Random Glucose 82 Calcium 8.7 Phosphorus 2.8 Magnesium 2.2 Total Bilirubin 1.8 H AST 572 H ALT 190 H Alkaline Phosphatase 423 H Troponin I B-Natriuretic Peptide 158.1 H Total Protein 7.4 Albumin 2.8 L TSH 6.09 H Free T4 02/03/19 02/03/19 02/03/19 10:20 10:20 17:00 WBC RBC Hgb Hct MCV MCH MCHC RDW Plt Count MPV Absolute Neuts (auto) Neutrophils % Lymphocytes % Monocytes % Eosinophils % Basophils % Nucleated RBC % PT with INR 12.50 INR 1.06 PTT (Actin FS) 30.0 Sodium Potassium Chloride Carbon Dioxide Anion Gap BUN Creatinine Est GFR (CKD-EPI)AfAm Est GFR (CKD-EPI)NonAf Random Glucose Calcium Phosphorus Magnesium Total Bilirubin AST ALT Alkaline Phosphatase Troponin I < 0.02 < 0.02 B-Natriuretic Peptide Total Protein Albumin TSH Free T4 0.87 Current Medications Generic Name Dose Route Start Last Admin Trade Name Freq PRN Reason Stop Dose Admin Heparin Sodium (Porcine) 5,000 unit 02/03/19 22:00 Heparin - SQ TID [facility] Home Medications Medication Instructions Recorded Amlodipine Besylate 10 mg PO DAILY 06/04/17 Multivitamin [One-Daily 1 each PO DAILY 03/21/18 Multi-Vitamin] Atorvastatin Ca [Lipitor] 40 mg PO HS 02/03/19 Hydralazine HCl 30 mg PO DAILY 02/03/19 Abdominal US: fatty infiltration of liver, hepatomegaly, no gall stones Chest CTA: No PE, atelectasis, elevation of R hemidiaphragm, hepatomegaly with fatty infiltration. LOWER EXT US: no evidence for DVT A/P: 59 y.o. F h/o CAD, CVA, HTN, HLD, morbid obesity, admitted for chest pain which now resolved, however patient exhibiting symptoms suspicious for CHF exacerbation. Will admit for workup for CHF. #Dyspnea on exertion Obtain echo, repeat EKG, BNP falsely low likely due to body habitus Cardiology consult B lines on bedside lung US reasonable to give 1 dose of Lasix 20mg IVP Send A1c, lipid panel, TSH Heart healthy diet, salt restriction, fluid restriction <1L/day #Transaminitis possibly secondary to fatty liver infiltration send Hepatitis panel for A,B,C Macrocytic anemia present on CBC, send folate, B12, send alcohol levels, trend LFTs #HTN Restart home BP medications #HLD Hold statin for now in view of LFTs DVT ppx: Heparin SQ Heart healthy diet, salt restriction, fluid restrict to <1L/day
[2019-02-03] MEDS ORDERED: FUROSEMIDE 40 MG/4 ML INJECTABLE VIAL IVPUSH ONE (21:15)
[2019-02-03] MEDS ORDERED: ATORVASTATIN CA 40 MG TABLET (FP) PO SCH (22:00)
[2019-02-03 22:13] LABS: COCAINE, UR NEGATIVE ng/ml (CUTOFF=300); METHADONE, UR NEGATIVE ng/ml (CUTOFF=300); OPIATES, URI NEGATIVE ng/ml (CUTOFF=300); PHENCYCLIDINE,URINE NEGATIVE ng/ml (CUTOFF=25); URINE AMPHETAMINES NEGATIVE ng/ml (CUTOFF=500); URINE BARBITURATES NEGATIVE ng/ml (CUTOFF=200); URINE BENZODIAZEPINES NEGATIVE ng/ml (CUTOFF=200)
[2019-02-03] MEDS: HEPARIN NA (PORCINE) 5,000 UNITS/ML 1ML VIAL SQ SCH (22:14)
[2019-02-03 23:57] LABS: URINE APPEARANCE CLOUDY; URINE COLOR DK YELLOW
[2019-02-03 23:58] LABS: PH,URINE 5.5 (5.0-8.0); URINE BILIRUBIN 1+ (NEGATIVE); URINE GLUCOSE (UA) NEGATIVE (NEGATIVE); URINE KETONE 1+ (NEGATIVE); URINE NITRITE POSITIVE (NEGATIVE); URINE PROTEIN 1+ (NEGATIVE)
[2019-02-03 23:59] LABS: EPI CELLS 1.6 /HPF (0-5/HPF); HYALINE CASTS 8.99 /lpf (0-8); URINE LEUK ESTERASE 2+ (NEGATIVE); URINE WBC 164.4 /hpf (0-5)
[2019-02-04] LABS: URINE BACTERIA 1950.8 /hpf (NEGATIVE)
[2019-02-04 00:11] LABS: URINE RBC 184.9 /hpf (0-4); YEAST NONE SEEN (NEGATIVE)
[2019-02-04] MEDS ORDERED: ACETAMINOPHEN 325 MG TABLET (FP) PO PRN ×2 (01:09→18:57)
[2019-02-04] MEDS: IBUPROFEN 600 MG TABLET (FP) PO PRN ×2 (01:50→08:14)
[2019-02-04] MEDS: HEPARIN NA (PORCINE) 5,000 UNITS/ML 1ML VIAL SQ SCH ×3 (06:20→21:46)
[2019-02-04 07:16] LABS: BASO % 0.6 % (0-2.0); EOS % 1.1 % (0-4.5); HEMATOCRIT 30.3 % (32.4-45.2); HEMOGLOBIN 10.1 GM/dL (10.7-15.3); LYMPH % 20.6 % (8-40); MCHC 33.3 g/dl (32.0-36.0); MEAN CELL VOLUME 101.9 fl (80-96); MEAN PLT VOLUME 9.1 fl (7.5-11.1); MONO % 17.2 % (3.8-10.2); NEUT % 60.5 % (42.8-82.8); PLATELET COUNT 196 K/MM3 (134-434); RBC 2.98 M/mm3 (3.60-5.2); RDW 14.8 % (11.6-15.6); WHITE BLOOD COUNT 3.5 K/mm3 (4.0-10.0)
[2019-02-04 07:28] LABS: INR 1.08 (0.83-1.09); PROTHROMBIN TIME (PATIENT) 12.7 SEC (9.7-13.0)
[2019-02-04 07:31] LABS: ACTIVATED PTT 29.6 SECONDS (25.2-36.5)
[2019-02-04 07:43] LABS: ALBUMIN 2.6 g/dl (3.4-5.0); BILIRUBIN,TOTAL 1.4 mg/dL (0.2-1); BLOOD UREA NITROGEN 5.3 mg/dL (7-18); CALCIUM 8.2 mg/dL (8.5-10.1); CREATININE 0.6 mg/dL (0.55-1.3); MAGNESIUM 2.2 mg/dL (1.8-2.4); PHOSPHOROUS 2.5 mg/dL (2.5-4.9); POTASSIUM 3.4 mmol/L (3.5-5.1); TOT PROT 6.5 g/dl (6.4-8.2)
[2019-02-04 07:48] LABS: CHOLESTEROL 129 mg/dL (50-200); HDL CHOLESTEROL 80 mg/dL (40-60); LDL CHOLESTEROL (ONLY SJRH) 30 mg/dL (5-100); TRIGLYCERIDES 60 mg/dL (0-150)
[2019-02-04] MEDS ORDERED: POTASSIUM CHLORIDE TABS 20 MEQ TABLET.ER (FP) PO ONE (09:00)
--- NOTE | 2019-02-04 10:22 | EKG ---
Test Reason : Blood Pressure : / mmHG Vent. Rate : 099 BPM Atrial Rate : 099 BPM P-R Int : 156 ms QRS Dur : 086 ms QT Int : 346 ms P-R-T Axes : 038 -26 052 degrees QTc Int : 444 ms POOR DATA QUALITY, INTERPRETATION MAY BE ADVERSELY AFFECTED NORMAL SINUS RHYTHM POSSIBLE ANTERIOR INFARCT (CITED ON OR BEFORE 30-SEP-2009) ABNORMAL ECG WHEN COMPARED WITH ECG OF 06-OCT-2009 10:22, PREMATURE VENTRICULAR COMPLEXES ARE NO LONGER PRESENT T WAVE INVERSION NO LONGER EVIDENT IN INFERIOR LEADS T WAVE INVERSION NO LONGER EVIDENT IN ANTEROLATERAL LEADS Confirmed by JERROD THOMAS MD ([id number]) on 02/04/2019 10:22:13 AM Referred By: Confirmed By:JERROD THOMAS MD
[2019-02-04] MEDS: MULTIVITAMINS (DAILY MVI) TABLET (FP) PO SCH (10:35)
[2019-02-04] MEDS: amLODIPine BESYLATE 10 MG TABLET (FP) PO SCH (10:35)
--- NOTE | 2019-02-04 11:35 | PN ---
Physical Exam: SUBJECTIVE: Patient seen and examined at the bedside. she feels as though she is stills short of breath and that her thighs and legs are more swollen OBJECTIVE: Patient is a 59 year old female with a significant past medical history of hypertension, HLD, HI (2010 no stent), CVA (2009). She presents to [facility] ED with chest pain, shortness of breath requiring supplemental oxygen and volume overload. Patient states that for the past ~1 month she has been progressively short of breath. During this time, she has also noticed increasing lower extremity edema bilaterally, right more so than left. A right breast mass also incidentally found. Vital Signs Period Temp Pulse Resp BP Sys/Mendez Pulse Ox Last 24 Hr 98 F-99.4 F 88-107 18-20 109-154/58-82 96-99 GENERAL: The patient is awake, alert, and fully oriented, in no acute distress. on 2 liters of nasal cannula HEAD: Normal with no signs of trauma. EYES: PERRL, extraocular movements intact, sclera anicteric, conjunctiva clear. No ptosis. ENT: Ears normal, nares patent, oropharynx clear without exudates, moist mucous membranes. NECK: Trachea midline, full range of motion, supple. LUNGS: diminished bilaterally, on supplemental oxygen ABDOMEN: Soft, nontender, nondistended, normoactive bowel sounds, no guarding, no rebound, no hepatosplenomegaly, no masses. EXTREMITIES: +1 bilateral lower ext edema. NEUROLOGICAL: Normal speech, gait not observed. PSYCH: Normal mood, normal affect. SKIN: Warm, dry, normal turgor, no rashes or lesions noted Laboratory Results - last 24 hr 02/03/19 02/03/19 02/03/19 10:18 10:20 10:20 WBC RBC Hgb Hct MCV MCH MCHC RDW Plt Count MPV Absolute Neuts (auto) Neutrophils % Lymphocytes % Monocytes % Eosinophils % Basophils % Nucleated RBC % PT with INR INR PTT (Actin FS) Sodium 138 Potassium 3.8 Chloride 99 Carbon Dioxide 30 Anion Gap 10 BUN 5.4 L Creatinine 0.6 Est GFR (CKD-EPI)AfAm 114.82 Est GFR (CKD-EPI)NonAf 99.07 Random Glucose 82 Hemoglobin A1c % Calcium 8.7 Phosphorus 2.8 Magnesium 2.2 Total Bilirubin 1.8 H AST 572 H ALT 190 H Alkaline Phosphatase 423 H Troponin I < 0.02 Total Protein 7.4 Albumin 2.8 L Triglycerides Cholesterol Total LDL Cholesterol HDL Cholesterol Vitamin B12 Serum Folate TSH 6.09 H Free T4 0.87 Free T3 2.5 Urine Color Urine Appearance Urine pH Ur Specific [place] Urine Protein Urine Glucose (UA) Urine Ketones Urine Blood Urine Nitrite Urine Bilirubin Urine Urobilinogen Ur Leukocyte Esterase Urine WBC (Auto) Urine RBC (Auto) Urine Casts (Auto) U Epithel Cells (Auto) Urine Bacteria (Auto) Urine Yeast (Auto) Opiates Screen Methadone Screen Barbiturate Screen Phencyclidine Screen Ur Amphetamines Screen MDMA (Ecstasy) Screen Benzodiazepines Screen Cocaine Screen U Marijuana (THC) Screen Hep A IgM Ab Confirm Hep Bs Antigen Hep B Core IgM Ab Hepatitis C Ab (EIA) 02/03/19 02/03/19 02/03/19 14:00 17:00 20:45 WBC RBC Hgb Hct MCV MCH MCHC RDW Plt Count MPV Absolute Neuts (auto) Neutrophils % Lymphocytes % Monocytes % Eosinophils % Basophils % Nucleated RBC % PT with INR INR PTT (Actin FS) Sodium Potassium Chloride Carbon Dioxide Anion Gap BUN Creatinine Est GFR (CKD-EPI)AfAm Est GFR (CKD-EPI)NonAf Random Glucose Hemoglobin A1c % Calcium Phosphorus Magnesium Total Bilirubin AST ALT Alkaline Phosphatase Troponin I < 0.02 Total Protein Albumin Triglycerides Cholesterol Total LDL Cholesterol HDL Cholesterol Vitamin B12 Serum Folate TSH Free T4 Free T3 Urine Color Urine Appearance Urine pH Ur Specific [place] Urine Protein Urine Glucose (UA) Urine Ketones Urine Blood Urine Nitrite Urine Bilirubin Urine Urobilinogen Ur Leukocyte Esterase Urine WBC (Auto) Urine RBC (Auto) Urine Casts (Auto) U Epithel Cells (Auto) Urine Bacteria (Auto) Urine Yeast (Auto) Opiates Screen Negative Methadone Screen Negative Barbiturate Screen Negative Phencyclidine Screen Negative Ur Amphetamines Screen Negative MDMA (Ecstasy) Screen Negative Benzodiazepines Screen Negative Cocaine Screen Negative U Marijuana (THC) Screen Negative Hep A IgM Ab Confirm Negative Hep Bs Antigen Negative Hep B Core IgM Ab Negative Hepatitis C Ab (EIA) <0.1 02/03/19 02/04/19 02/04/19 20:45 05:35 05:35 WBC 3.5 L RBC 2.98 L Hgb 10.1 L Hct 30.3 L MCV 101.9 H MCH 34.0 H MCHC 33.3 RDW 14.8 Plt Count 196 MPV 9.1 Absolute Neuts (auto) 2.1 Neutrophils % 60.5 Lymphocytes % 20.6 Monocytes % 17.2 H Eosinophils % 1.1 D Basophils % 0.6 Nucleated RBC % 1 H PT with INR 12.70 INR 1.08 PTT (Actin FS) 29.6 Sodium Potassium Chloride Carbon Dioxide Anion Gap BUN Creatinine Est GFR (CKD-EPI)AfAm Est GFR (CKD-EPI)NonAf Random Glucose Hemoglobin A1c % Calcium Phosphorus Magnesium Total Bilirubin AST ALT Alkaline Phosphatase Troponin I Total Protein Albumin Triglycerides Cholesterol Total LDL Cholesterol HDL Cholesterol Vitamin B12 Serum Folate TSH Free T4 Free T3 Urine Color Dk yellow Urine Appearance Cloudy Urine pH 5.5 Ur Specific [place] 1.054 H Urine Protein 1+ H Urine Glucose (UA) Negative Urine Ketones 1+ H Urine Blood 3+ H Urine Nitrite Positive H Urine Bilirubin 1+ H Urine Urobilinogen 1.0 Ur Leukocyte Esterase 2+ H Urine WBC (Auto) 164.4 Urine RBC (Auto) 184.9 Urine Casts (Auto) 8.99 U Epithel Cells (Auto) 1.6 Urine Bacteria (Auto) 1950.8 Urine Yeast (Auto) None seen Opiates Screen Methadone Screen Barbiturate Screen Phencyclidine Screen Ur Amphetamines Screen MDMA (Ecstasy) Screen Benzodiazepines Screen Cocaine Screen U Marijuana (THC) Screen Hep A IgM Ab Confirm Hep Bs Antigen Hep B Core IgM Ab Hepatitis C Ab (EIA) 02/04/19 02/04/19 02/04/19 05:35 05:35 05:35 WBC RBC Hgb Hct MCV MCH MCHC RDW Plt Count MPV Absolute Neuts (auto) Neutrophils % Lymphocytes % Monocytes % Eosinophils % Basophils % Nucleated RBC % PT with INR INR PTT (Actin FS) Sodium 139 Potassium 3.4 L Chloride 98 Carbon Dioxide 33 H Anion Gap 7 L BUN 5.3 L Creatinine 0.6 Est GFR (CKD-EPI)AfAm 114.82 Est GFR (CKD-EPI)NonAf 99.07 Random Glucose 104 Hemoglobin A1c % 4.3 Calcium 8.2 L Phosphorus 2.5 Magnesium 2.2 Total Bilirubin 1.4 H AST 469 H ALT 164 H Alkaline Phosphatase 371 H Troponin I Total Protein 6.5 Albumin 2.6 L Triglycerides 60 Cholesterol 129 Total LDL Cholesterol 30 HDL Cholesterol 80 H Vitamin B12 1965 H Serum Folate 20 H TSH Free T4 Free T3 Urine Color Urine Appearance Urine pH Ur Specific [place] Urine Protein Urine Glucose (UA) Urine Ketones Urine Blood Urine Nitrite Urine Bilirubin Urine Urobilinogen Ur Leukocyte Esterase Urine WBC (Auto) Urine RBC (Auto) Urine Casts (Auto) U Epithel Cells (Auto) Urine Bacteria (Auto) Urine Yeast (Auto) Opiates Screen Methadone Screen Barbiturate Screen Phencyclidine Screen Ur Amphetamines Screen MDMA (Ecstasy) Screen Benzodiazepines Screen Cocaine Screen U Marijuana (THC) Screen Hep A IgM Ab Confirm Hep Bs Antigen Hep B Core IgM Ab Hepatitis C Ab (EIA) Active Medications Generic Name Dose Route Start Last Admin Trade Name Freq PRN Reason Stop Dose Admin Amlodipine Besylate 10 mg 02/04/19 10:00 02/04/19 10:35 Norvasc - PO 10 mg DAILY TENNILLE Administration Heparin Sodium (Porcine) 5,000 unit 02/03/19 22:00 02/04/19 06:20 Heparin - SQ 5,000 unit TID TENNILLE Administration Ibuprofen 600 mg 02/04/19 01:10 02/04/19 08:14 Motrin - PO 600 mg Q6H PRN Administration PAIN LEVEL 6-10 Multivitamins/Minerals/Vitamin C 1 tab 02/04/19 10:00 02/04/19 10:35 Tab-A-Vit - PO 1 tab DAILY TENNILLE Administration ASSESSMENT/PLAN: Problem List - Problems (1) Chest pain Assessment/Plan: chest pain resolved troponins negative obtain echo Code(s): R07.9 - CHEST PAIN, UNSPECIFIED (2) MCGRAW (dyspnea on exertion) Assessment/Plan: shortness of breath with exertion x several weeks with BLE swelling negative for PE per CTA Obtain echo to monitor EF, possible CHF? given lasix 40mg once today for shortness of breath Heart healthy diet, salt restriction, fluid restriction <1L/day on supplemental oxygen, wean off as tolerated Code(s): R06.09 - OTHER FORMS OF DYSPNEA (3) Elevated LFTs Assessment/Plan: possibly secondary to fatty liver infiltration hepatitis panel sent Code(s): R94.5 - ABNORMAL RESULTS OF LIVER FUNCTION STUDIES (4) Elevated TSH Code(s): R79.89 - OTHER SPECIFIED ABNORMAL FINDINGS OF BLOOD CHEMISTRY (5) Hypokalemia Assessment/Plan: repleted Code(s): E87.6 - HYPOKALEMIA (6) Morbid obesity Assessment/Plan: outpatient follow up Code(s): E66.01 - MORBID (SEVERE) OBESITY DUE TO EXCESS CALORIES (7) Nephrolithiasis Assessment/Plan: monitor kidney function Code(s): N20.0 - CALCULUS OF KIDNEY Visit type - Emergency Visit Emergency Visit: Yes ED Registration Date: 02/03/19 Care time: The patient presented to the Emergency Department on the above date and was hospitalized for further evaluation of their emergent condition. - New Patient This patient is new to me today: Yes Date on this admission: 02/04/19 - Critical Care Critical Care patient: No - Discharge Referral Referred to [facility] Med P.C.: No
[2019-02-04] MEDS ORDERED: ALBUTEROL SO4 2.5/IPRATROPIUM 0.5 INH SOL 3 ML VIAL.NEB. NEB ONE (11:47)
[2019-02-04] MEDS ORDERED: FUROSEMIDE 40 MG/4 ML INJECTABLE VIAL IVPUSH ONE (11:47)
--- NOTE | 2019-02-04 15:53 | CON.CARD ---
Consult Consult Specialty:: cardiology Reason for Consultation:: atypical chest pain; multple CAD risks - History of Present Illness Chief Complaint: Pt A&Ox3; no chest pain; no dyspnea. History of Present Illness: 59-year-old black female with history of kidney stones requiring nephrostomy stent most recently in February 2018, morbid obesity, diastolic CHF, HTN, HLD, NSTEMI 2009 due to severe vaginal bleed (2009 post-MO coronary angiogram showed nonobstrucitve disease; no ischemia on 05/2017 stress MIBI); TIA in 2009, presenting with shortness of breath with exertion x several weeks, a/w BLE swelling chest pain this morning +LE swelling, saw PMD several weeks ago +right breast mass Pt hx 3 alcoholic drinks every night. Meds at home: amlodipine, metoprolol ER, furosemide. - History Source History Provided By: Patient, Medical Record Limitations to Obtaining History: No Limitations - Past Medical History Cardio/Vascular: Yes: CAD, CHF, HTN, [place] Pulmonary: No: Asthma Reproductive: Yes: Postmenopausal ...LMP Comment: 2009 ...: No Heme/Onc: Yes: Anemia Musculoskeletal: Yes: Chronic low back pain Endocrine: Yes: Hypothyroidism - Past Surgical History Past Surgical History: Yes: Stent (renal; ? coronary) - Alcohol/Substance Use Hx Alcohol Use: Yes (wine/social) - Smoking History Smoking history: Former smoker Have you smoked in the past 12 months: No Aproximately how many cigarettes per day: 8 If you are a former smoker, when did you quit?: 2009 Home Medications - Allergies Allergies/Adverse Reactions: Allergies Allergy/AdvReac Type Severity Reaction Status Date / Time No Known Allergies Allergy Verified 02/03/19 10:22 - Home Medications Home Medications: Ambulatory Orders Amlodipine Besylate 10 mg PO DAILY 06/04/17 Multivitamin [One-Daily Multi-Vitamin] 1 each PO DAILY 03/21/18 Atorvastatin Ca [Lipitor] 40 mg PO HS 02/03/19 Hydralazine HCl 30 mg PO DAILY 02/03/19 Family Medical History Family History: Denies Review of Systems - Review of Systems Constitutional: reports: No Symptoms Eyes: reports: No Symptoms HENT: reports: No Symptoms Neck: reports: No Symptoms Cardiovascular: denies: Chest Pain Respiratory: reports: SOB on Exertion Gastrointestinal: reports: No Symptoms Genitourinary: reports: No Symptoms Breasts: reports: No Symptoms Reported Musculoskeletal: reports: Joint Swelling Integumentary: reports: No Symptoms Neurological: reports: No Symptoms Endocrine: reports: No Symptoms Hematology/Lymphatic: reports: No Symptoms Psychiatric: reports: Anxiety - Risk Factors Known Risk Factors: Yes: Age, Hypercholesterolemia, Physical Inactivity, Race, Other (morbid obesity) Vital Signs: Vital Signs Temperature 98.5 F 02/04/19 14:28 Pulse Rate 89 02/04/19 14:28 Respiratory Rate 22 H 02/04/19 14:28 Blood Pressure 132/67 02/04/19 14:28 O2 Sat by Pulse Oximetry (%) 96 02/04/19 08:49 Constitutional: Yes: Anxious Eyes: Yes: WNL HENT: Yes: WNL Neck: Yes: WNL Respiratory: Yes: Regular Gastrointestinal: Yes: Soft, Abdomen, Obese Renal/: No: Anuria Cardiovascular: Yes: WNL JVD: No Carotid Bruit: No PMI: Non-Displaced Heart Sounds: Yes: S1, S2, S4 Murmur: Yes: Systolic Murmur, Grade 1 Musculoskeletal: Yes: Joint Stiffness, Muscle Weakness Extremities: Yes: Cool Edema: No Peripheral Pulses WNL: Yes Integumentary: Yes: WNL Neurological: Yes: WNL ...Motor Strength: WNL Psychiatric: Yes: Alert, Oriented - Other Data Labs, Other Data: CBC, BMP 02/04/19 05:35 02/04/19 05:35 INR, PTT INR 1.08 (0.83-1.09) 02/04/19 05:35 Troponin, BNP 02/03/19 17:00 Troponin I < 0.02 Troponin, BNP 02/03/19 17:00 Troponin I < 0.02 Echo: Report Reviewed Imaging - Results Chest X-ray: Image Reviewed EKG: Image Reviewed Problem List - Problems (1) Atypical chest pain Assessment/Plan: TNI < 0.02 x 2. EKG: NSR; old anterior wall MO (noted on EKG from 2009 as well); no acute STT changes. F/u ECHO (done in office), prior coronary angiogram/PCI; reportedly had stress MIBI in the past ?year. Code(s): R07.89 - OTHER CHEST PAIN (2) HTN (hypertension) Code(s): I10 - ESSENTIAL (PRIMARY) HYPERTENSION Qualifiers: Hypertension type: essential hypertension Qualified Code(s): I10 - Essential (primary) hypertension (3) Anemia Code(s): D64.9 - ANEMIA, UNSPECIFIED (4) MCGRAW (dyspnea on exertion) Code(s): R06.09 - OTHER FORMS OF DYSPNEA (5) Elevated LFTs Assessment/Plan: f/u GI workup; r/o medication/s as etiology; e.g., has been on long-term NSAIDs. Less likely from acute CHF (relatively mild RVSP). Pt has at least 3 alcoholic drinks most nights. Code(s): R94.5 - ABNORMAL RESULTS OF LIVER FUNCTION STUDIES (6) Nephrolithiasis Code(s): N20.0 - CALCULUS OF KIDNEY (7) Hypokalemia Assessment/Plan: Replete, and keep K+ 4.0-4.5 Mg WNL Code(s): E87.6 - HYPOKALEMIA (8) NSAID long-term use Assessment/Plan: Recommend stop ihgh-dose ibuprofen (pt takes it for "inflammation", but says she has never been diagnosed with RA or inflammatory disesaes.\\ Hx "sciatica". Liver abnormalities make using acetominophen problematic. If pain returns may consider Tramadol; a pain management consult would be of benefit. Code(s): Z79.1 - RELAY [employer] (CURRENT) USE OF NON-STEROIDAL NON-INFLAM (NSAID) (9) Elevated TSH Assessment/Plan: Free T4 WNL. Code(s): R79.89 - OTHER SPECIFIED ABNORMAL FINDINGS OF BLOOD CHEMISTRY (10) Diastolic CHF Code(s): I50.30 - UNSPECIFIED DIASTOLIC (CONGESTIVE) HEART FAILURE (11) Morbid obesity Assessment/Plan: The importance of dietary change and weight loss was emphasized. Code(s): E66.01 - MORBID (SEVERE) OBESITY DUE TO EXCESS CALORIES
[2019-02-05] MEDS ORDERED: ZOLPIDEM TARTRATE 5 MG TABLET PO ONE (00:03)
[2019-02-05] MEDS: traMADol HCL 50 MG TABLET PO PRN ×2 (03:45→16:18)
[2019-02-05 06:40] LABS: BASO % 0.5 % (0-2.0); EOS % 1.8 % (0-4.5); HEMATOCRIT 32.2 % (32.4-45.2); HEMOGLOBIN 10.8 GM/dL (10.7-15.3); LYMPH % 23.7 % (8-40); MCHC 33.3 g/dl (32.0-36.0); MEAN CELL VOLUME 102.1 fl (80-96); MEAN PLT VOLUME 8.7 fl (7.5-11.1); MONO % 15.2 % (3.8-10.2); NEUT % 58.8 % (42.8-82.8); PLATELET COUNT 202 K/MM3 (134-434); RBC 3.16 M/mm3 (3.60-5.2); RDW 14.5 % (11.6-15.6); WHITE BLOOD COUNT 2.9 K/mm3 (4.0-10.0)
[2019-02-05] MEDS: HEPARIN NA (PORCINE) 5,000 UNITS/ML 1ML VIAL SQ SCH ×3 (06:42→21:50)
[2019-02-05 07:01] LABS: ALBUMIN 2.5 g/dl (3.4-5.0); BILIRUBIN,TOTAL 1.1 mg/dL (0.2-1); BLOOD UREA NITROGEN 4.6 mg/dL (7-18); CALCIUM 8.7 mg/dL (8.5-10.1); CREATININE 0.7 mg/dL (0.55-1.3); MAGNESIUM 2.1 mg/dL (1.8-2.4); POTASSIUM 3.7 mmol/L (3.5-5.1); TOT PROT 6.6 g/dl (6.4-8.2)
[2019-02-05] MEDS: MULTIVITAMINS (DAILY MVI) TABLET (FP) PO SCH (09:00)
[2019-02-05] MEDS: amLODIPine BESYLATE 10 MG TABLET (FP) PO SCH (09:00)
[2019-02-05 10:33] LABS: N-TERMINAL BNP 142.9 pg/ml (5-125)
--- NOTE | 2019-02-05 13:24 | PN ---
Physical Exam: SUBJECTIVE: Patient seen and examined OBJECTIVE: Vital Signs Period Temp Pulse Resp BP Sys/Mendez Pulse Ox Last 24 Hr 97.8 F-98.5 F 80-89 20-22 123-133/61-79 94-95 GENERAL: The patient is awake, alert, and fully oriented, in no acute distress. HEAD: Normal with no signs of trauma. EYES: PERRL, extraocular movements intact, sclera anicteric, conjunctiva clear. No ptosis. ENT: Ears normal, nares patent, oropharynx clear without exudates, moist mucous membranes. NECK: Trachea midline, full range of motion, supple. LUNGS: Breath sounds equal, clear to auscultation bilaterally, no wheezes, no crackles, no accessory muscle use. HEART: Regular rate and rhythm, S1, S2 without murmur, rub or gallop. ABDOMEN: Soft, nontender, nondistended, normoactive bowel sounds, no guarding, no rebound, no hepatosplenomegaly, no masses. EXTREMITIES: 2+ pulses, warm, well-perfused, no edema. NEUROLOGICAL: Cranial nerves II through XII grossly intact. Normal speech, gait not observed. PSYCH: Normal mood, normal affect. SKIN: Warm, dry, normal turgor, no rashes or lesions noted Laboratory Results - last 24 hr 02/05/19 02/05/19 05:45 05:45 WBC 2.9 L RBC 3.16 L Hgb 10.8 Hct 32.2 L MCV 102.1 H MCH 34.0 H MCHC 33.3 RDW 14.5 Plt Count 202 MPV 8.7 Absolute Neuts (auto) 1.7 Neutrophils % 58.8 Lymphocytes % 23.7 Monocytes % 15.2 H Eosinophils % 1.8 Basophils % 0.5 Nucleated RBC % 1 H Sodium 139 Potassium 3.7 Chloride 98 Carbon Dioxide 37 H Anion Gap 4 L BUN 4.6 L Creatinine 0.7 Est GFR (CKD-EPI)AfAm 109.15 Est GFR (CKD-EPI)NonAf 94.17 Random Glucose 111 H Calcium 8.7 Magnesium 2.1 Total Bilirubin 1.1 H AST 422 H ALT 167 H Alkaline Phosphatase 361 H B-Natriuretic Peptide 142.9 H Total Protein 6.6 Albumin 2.5 L Active Medications Generic Name Dose Route Start Last Admin Trade Name Freq PRN Reason Stop Dose Admin Amlodipine Besylate 10 mg 02/04/19 10:00 02/05/19 09:00 Norvasc - PO 10 mg DAILY TENNILLE Administration Heparin Sodium (Porcine) 5,000 unit 02/03/19 22:00 02/05/19 06:42 Heparin - SQ 5,000 unit TID TENNILLE Administration Multivitamins/Minerals/Vitamin C 1 tab 02/04/19 10:00 02/05/19 09:00 Tab-A-Vit - PO 1 tab DAILY TENNILLE Administration Tramadol HCl 50 mg 02/04/19 18:57 02/05/19 03:45 Ultram - PO 50 mg Q8H PRN Administration PAIN LEVEL 6-10 ASSESSMENT/PLAN: Problem List - Problems (1) Chest pain Code(s): R07.9 - CHEST PAIN, UNSPECIFIED (2) MCGRAW (dyspnea on exertion) Code(s): R06.09 - OTHER FORMS OF DYSPNEA (3) Elevated LFTs Code(s): R94.5 - ABNORMAL RESULTS OF LIVER FUNCTION STUDIES (4) Elevated TSH Code(s): R79.89 - OTHER SPECIFIED ABNORMAL FINDINGS OF BLOOD CHEMISTRY (5) Hypokalemia Code(s): E87.6 - HYPOKALEMIA (6) Morbid obesity Code(s): E66.01 - MORBID (SEVERE) OBESITY DUE TO EXCESS CALORIES (7) Nephrolithiasis Code(s): N20.0 - CALCULUS OF KIDNEY
--- NOTE | 2019-02-05 13:38 | PN ---
Progress Note (short form) - Note Progress Note: PULMONARY CONSULTATION DICTATED 02/05/19 IMP DYSPNEA ? COPD,? ASHD ,MORBID OBESITY ASHD S/P [place] HTN MORBID OBESITY S/PLAP SLEEVE SUSPECTED OSAS HLD ANEMIA ELEVATED LFTS PLAN CARDIAC W/U PER CARDIOLOGY INHALED BRONCHODILATORS OUTPATIENT PFTS SLEEP SCREEN OUTPATIENT SLEEP STUDIES ABG ON RA AMBULATORY O2 SAT ON RA MONITOR LFTS DR PUGH Problem List - Problems (1) ASHD (arteriosclerotic heart disease) Code(s): I25.10 - ATHSCL HEART DISEASE OF [place] CORONARY ARTERY W/O ANG PCTRS (2) Anemia Code(s): D64.9 - ANEMIA, UNSPECIFIED (3) MCGRAW (dyspnea on exertion) Code(s): R06.09 - OTHER FORMS OF DYSPNEA (4) Diastolic CHF Code(s): I50.30 - UNSPECIFIED DIASTOLIC (CONGESTIVE) HEART FAILURE (5) Fatty liver Code(s): K76.0 - FATTY (CHANGE OF) LIVER, NOT ELSEWHERE CLASSIFIED (6) HTN (hypertension) Code(s): I10 - ESSENTIAL (PRIMARY) HYPERTENSION Qualifiers: Hypertension type: essential hypertension Qualified Code(s): I10 - Essential (primary) hypertension (7) Morbid obesity Code(s): E66.01 - MORBID (SEVERE) OBESITY DUE TO EXCESS CALORIES (8) H/O: CVA (cerebrovascular accident) Code(s): Z86.73 - PRSNL HX OF TIA (TIA), AND CEREB INFRC W/O RESID DEFICITS
--- NOTE | 2019-02-05 13:50 | PN ---
Progress Note (short form) - Note Progress Note: PULMONARY CONSULTATION DICTATED 02/05/19 IMP DYSPNEA ? COPD,? ASHD ,MORBID OBESITY ASHD S/P [place] HTN MORBID OBESITY S/PLAP SLEEVE SUSPECTED OSAS HLD ANEMIA ELEVATED LFTS PLAN CARDIAC W/U PER CARDIOLOGY INHALED BRONCHODILATORS OUTPATIENT PFTS SLEEP SCREEN OUTPATIENT SLEEP STUDIES ABG ON RA AMBULATORY O2 SAT ON RA MONITOR LYTES,H+H MONITOR LFTS ECHO DR PUGH Problem List - Problems (1) ASHD (arteriosclerotic heart disease) Code(s): I25.10 - ATHSCL HEART DISEASE OF [place] CORONARY ARTERY W/O ANG PCTRS (2) Anemia Code(s): D64.9 - ANEMIA, UNSPECIFIED (3) MCGRAW (dyspnea on exertion) Code(s): R06.09 - OTHER FORMS OF DYSPNEA (4) Diastolic CHF Code(s): I50.30 - UNSPECIFIED DIASTOLIC (CONGESTIVE) HEART FAILURE (5) Fatty liver Code(s): K76.0 - FATTY (CHANGE OF) LIVER, NOT ELSEWHERE CLASSIFIED (6) HTN (hypertension) Code(s): I10 - ESSENTIAL (PRIMARY) HYPERTENSION Qualifiers: Hypertension type: essential hypertension Qualified Code(s): I10 - Essential (primary) hypertension (7) Morbid obesity Code(s): E66.01 - MORBID (SEVERE) OBESITY DUE TO EXCESS CALORIES (8) H/O: CVA (cerebrovascular accident) Code(s): Z86.73 - PRSNL HX OF TIA (TIA), AND CEREB INFRC W/O RESID DEFICITS
--- NOTE | 2019-02-05 14:09 | PN ---
Physical Exam: SUBJECTIVE: Patient seen and examined at the bedside. in no acute distress. OBJECTIVE: pre and post shows oxygen low at 86% on room air prior to ambulation ------ Patient is a 59 year old female with a significant past medical history of hypertension, HLD, [place] (2010 no stent), CVA (2009) and gastric sleeve surgery with 78 lbs weight loss since 2013. She presents to [facility] ED with chest pain , shortness of breath requiring supplemental oxygen and volume overload. Patient states that for the past 1 month she has been progressively short of breath. During this time, she has also noticed increasing lower extremity edema bilaterally, right more so than left. A right breast mass also incidentally found. Vital Signs Period Temp Pulse Resp BP Sys/Mendez Pulse Ox Last 24 Hr 97.8 F-98.5 F 80-89 20-22 123-133/61-79 94-95 GENERAL: The patient is awake, alert, and fully oriented, in no acute distress. on 2 liters of nasal cannula HEAD: Normal with no signs of trauma. EYES: PERRL, extraocular movements intact, sclera anicteric, conjunctiva clear. No ptosis. ENT: Ears normal, nares patent, oropharynx clear without exudates, moist mucous membranes. NECK: Trachea midline, full range of motion, supple. LUNGS: diminished bilaterally, on supplemental oxygen - mild wheezing of upper lobes ABDOMEN: Soft, nontender, nondistended, normoactive bowel sounds, no guarding, no rebound, no hepatosplenomegaly, no masses. EXTREMITIES: +1 bilateral lower ext edema bilaterally from her thighs to feet NEUROLOGICAL: Normal speech, gait not observed. PSYCH: Normal mood, normal affect. SKIN: Warm, dry, normal turgor, no rashes or lesions noted Laboratory Results - last 24 hr 02/05/19 02/05/19 05:45 05:45 WBC 2.9 L RBC 3.16 L Hgb 10.8 Hct 32.2 L MCV 102.1 H MCH 34.0 H MCHC 33.3 RDW 14.5 Plt Count 202 MPV 8.7 Absolute Neuts (auto) 1.7 Neutrophils % 58.8 Lymphocytes % 23.7 Monocytes % 15.2 H Eosinophils % 1.8 Basophils % 0.5 Nucleated RBC % 1 H Sodium 139 Potassium 3.7 Chloride 98 Carbon Dioxide 37 H Anion Gap 4 L BUN 4.6 L Creatinine 0.7 Est GFR (CKD-EPI)AfAm 109.15 Est GFR (CKD-EPI)NonAf 94.17 Random Glucose 111 H Calcium 8.7 Magnesium 2.1 Total Bilirubin 1.1 H AST 422 H ALT 167 H Alkaline Phosphatase 361 H B-Natriuretic Peptide 142.9 H Total Protein 6.6 Albumin 2.5 L Active Medications Generic Name Dose Route Start Last Admin Trade Name Freq PRN Reason Stop Dose Admin Albuterol/Ipratropium 1 amp 02/05/19 13:51 Duoneb - NEB Q4H PRN SHORTNESS OF BREATH Amlodipine Besylate 10 mg 02/04/19 10:00 02/05/19 09:00 Norvasc - PO 10 mg DAILY [facility] Administration Heparin Sodium (Porcine) 5,000 unit 02/03/19 22:00 02/05/19 13:38 Heparin - SQ 5,000 unit TID [facility] Administration Multivitamins/Minerals/Vitamin C 1 tab 02/04/19 10:00 02/05/19 09:00 Tab-A-Vit - PO 1 tab DAILY [facility] Administration Tramadol HCl 50 mg 02/04/19 18:57 02/05/19 03:45 Ultram - PO 50 mg Q8H PRN Administration PAIN LEVEL 6-10 ASSESSMENT/PLAN: Problem List - Problems (1) Diastolic CHF Assessment/Plan: pending echo monitor on tele start on lasix 40mg bid monitor weights, electrolytes Code(s): I50.30 - UNSPECIFIED DIASTOLIC (CONGESTIVE) HEART FAILURE (2) Chest pain Assessment/Plan: chest pain resolved troponins negative obtain echo had echo last done at her [employer] office may 2017 (dr. alexis) Code(s): R07.9 - CHEST PAIN, UNSPECIFIED (3) MCGRAW (dyspnea on exertion) Assessment/Plan: shortness of breath with exertion x several weeks with BLE swelling, negative for CTA Obtain echo to monitor EF, possible CHF? will start on lasix, daily weights and fluid restriction 1 liter per day on supplemental oxygen, at 2-3 liters, drops to 86% on room air. Code(s): R06.09 - OTHER FORMS OF DYSPNEA (4) Elevated LFTs Assessment/Plan: possibly secondary to fatty liver infiltration hepatitis panel noted Code(s): R94.5 - ABNORMAL RESULTS OF LIVER FUNCTION STUDIES (5) Elevated TSH Code(s): R79.89 - OTHER SPECIFIED ABNORMAL FINDINGS OF BLOOD CHEMISTRY (6) Hypokalemia Assessment/Plan: repleted Code(s): E87.6 - HYPOKALEMIA (7) Morbid obesity Assessment/Plan: outpatient follow up s/p gastric sleeve surgery a few years ago Code(s): E66.01 - MORBID (SEVERE) OBESITY DUE TO EXCESS CALORIES (8) Nephrolithiasis Assessment/Plan: monitor kidney function Code(s): N20.0 - CALCULUS OF KIDNEY Visit type - Emergency Visit Emergency Visit: Yes ED Registration Date: 02/05/19 Care time: The patient presented to the Emergency Department on the above date and was hospitalized for further evaluation of their emergent condition. - New Patient This patient is new to me today: No - Critical Care Critical Care patient: No - Discharge Referral Referred to [facility] Med P.C.: No
[2019-02-05 14:56] LABS: ARTERIAL BLD GAS O2 SATURATION 86.1 % (95-98); ARTERIAL BLOOD GAS BASE EXCESS 8.8 meq/l (-2-2); ARTERIAL BLOOD GAS PCO2 48.1 mmHg (35-45); ARTERIAL BLOOD GAS PO2 54.3 mmHg (80-100); ARTERIAL BLOOD GAS pH 7.46 (7.35-7.45)
[2019-02-05 14:57] LABS: ALLENS TEST POSITIVE
[2019-02-05] MEDS: ALBUTEROL SO4 2.5/IPRATROPIUM 0.5 INH SOL 3 ML VIAL.NEB. NEB PRN ×2 (15:00→21:10)
[2019-02-05] MEDS: FUROSEMIDE 40 MG/4 ML INJECTABLE VIAL IVPUSH SCH (16:16)
[2019-02-06] MEDS: traMADol HCL 50 MG TABLET PO PRN ×2 (00:37→10:31)
[2019-02-06] MEDS: HEPARIN NA (PORCINE) 5,000 UNITS/ML 1ML VIAL SQ SCH ×3 (05:25→21:47)
[2019-02-06 06:55] LABS: BASO % 0.6 % (0-2.0); EOS % 1.4 % (0-4.5); HEMATOCRIT 33.3 % (32.4-45.2); HEMOGLOBIN 10.9 GM/dL (10.7-15.3); LYMPH % 23.4 % (8-40); MCH 33.6 pg (25.7-33.7); MCHC 32.6 g/dl (32.0-36.0); MEAN CELL VOLUME 103.3 fl (80-96); MONO % 19.1 % (3.8-10.2); NEUT % 55.5 % (42.8-82.8); PLATELET COUNT 209 K/MM3 (134-434); RBC 3.23 M/mm3 (3.60-5.2); RDW 14.9 % (11.6-15.6); WHITE BLOOD COUNT 3.4 K/mm3 (4.0-10.0)
[2019-02-06 07:23] LABS: ALBUMIN 2.5 g/dl (3.4-5.0); BILIRUBIN,TOTAL 0.9 mg/dL (0.2-1); CALCIUM 8.8 mg/dL (8.5-10.1); CREATININE 0.7 mg/dL (0.55-1.3); MAGNESIUM 2.1 mg/dL (1.8-2.4); POTASSIUM 3.4 mmol/L (3.5-5.1); TOT PROT 6.8 g/dl (6.4-8.2)
[2019-02-06] MEDS: ALBUTEROL SO4 2.5/IPRATROPIUM 0.5 INH SOL 3 ML VIAL.NEB. NEB PRN (08:07)
[2019-02-06] MEDS: MULTIVITAMINS (DAILY MVI) TABLET (FP) PO SCH (10:31)
[2019-02-06] MEDS: FUROSEMIDE 40 MG/4 ML INJECTABLE VIAL IVPUSH SCH (10:31)
[2019-02-06] MEDS: amLODIPine BESYLATE 10 MG TABLET (FP) PO SCH (10:31)
--- NOTE | 2019-02-06 10:45 | PN ---
Progress Note, Physician History of Present Illness: 59-year-old black female with history of kidney stones requiring nephrostomy stent most recently in February 2018, morbid obesity, diastolic CHF, HTN, HLD, NSTEMI 2010 due to severe vaginal bleed (2009 post-[place] coronary angiogram showed nonobstrucitve disease; no ischemia on 05/2017 stress MIBI); TIA in 2009, presenting with shortness of breath with exertion x several weeks, a/w BLE swelling chest pain this morning +LE swelling, saw PMD several weeks ago +right breast mass Pt hx 3 alcoholic drinks every night. Meds at home: amlodipine, metoprolol ER, furosemide. PMH Non-stemi due to severe anemia from vaginal bleeding at [facility] September 2009. Cardiac catherization normal coronary arteries 2009. 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 TIA 2009. Bariatric surgery and hysterectomy 2011. Exercise MIBI stress test was negative in May 2017 ECHO May 2018 Conclusions 1. This was a technically difficult study with suboptimal views. 2. Left ventricular systolic function is normal with an estimated EF of >70%. 3. Mitral Doppler inflow pattern suggests diastolic filling abnormality. 4. No regional wall motion abnormalities were noted. 5. The left atrium is moderately dilated. 6. Mild mitral regurgitation is present. 7. Trace tricuspid regurgitation present. 8. Right ventricular systolic pressure is normal at < 35 mmHg. Date 05/27/2018 10:25 Electronically signed off - Current Medication List Current Medications: Active Medications Albuterol/Ipratropium (Duoneb -) 1 amp NEB Q4H PRN PRN Reason: SHORTNESS OF BREATH Last Admin: 02/06/19 08:07 Dose: 1 amp Amlodipine Besylate (Norvasc -) 10 mg PO DAILY [facility] Last Admin: 02/06/19 10:31 Dose: 10 mg Furosemide (Lasix Injection -) 40 mg IVPUSH DAILY [facility] Last Admin: 02/06/19 10:31 Dose: 40 mg Heparin Sodium (Porcine) (Heparin -) 5,000 unit SQ TID [facility] Last Admin: 02/06/19 05:25 Dose: 5,000 unit Multivitamins/Minerals/Vitamin C (Tab-A-Vit -) 1 tab PO DAILY [facility] Last Admin: 02/06/19 10:31 Dose: 1 tab Tramadol HCl (Ultram -) 50 mg PO Q8H PRN PRN Reason: PAIN LEVEL 6-10 Last Admin: 02/06/19 10:31 Dose: 50 mg - Objective Vital Signs: Vital Signs Temperature 97.9 F 02/06/19 05:08 Pulse Rate 87 02/06/19 05:08 Respiratory Rate 20 02/06/19 05:08 Blood Pressure 123/59 L 02/06/19 05:08 O2 Sat by Pulse Oximetry (%) 94 L 02/05/19 21:00 Eyes: Yes: WNL, Conjunctiva Clear, EOM Intact HENT: Yes: WNL, Atraumatic, Normocephalic Neck: Yes: WNL, Supple, Trachea Midline Cardiovascular: Yes: WNL, Regular Rate and Rhythm Respiratory: Yes: WNL, Regular, CTA Bilaterally Gastrointestinal: Yes: WNL, Normal Bowel Sounds Genitourinary: Yes: WNL Musculoskeletal: Yes: WNL Extremities: Yes: WNL Edema: Yes Integumentary: Yes: WNL Neurological: Yes: WNL, Alert, Oriented ...Motor Strength: WNL Psychiatric: Yes: WNL Labs: CBC, BMP 02/06/19 06:10 02/06/19 06:10 INR, PTT INR 1.08 (0.83-1.09) 02/04/19 05:35 Assessment/Plan - Problems (1) Atypical chest pain Assessment/Plan: TNI < 0.02 x 2. EKG: NSR; old anterior wall [place] (noted on EKG from 2009 as well); no acute STT changes. F?u ECHO (done in office), prior coronary angiogram/no PCI; reportedly had stress MIBI in the past ?year. Code(s): R07.89 - OTHER CHEST PAIN (2) HTN (hypertension) Code(s): I10 - ESSENTIAL (PRIMARY) HYPERTENSION Qualifiers: Hypertension type: essential hypertension Qualified Code(s): I10 - Essential (primary) hypertension (3) Anemia Code(s): D64.9 - ANEMIA, UNSPECIFIED (4) MCGRAW (dyspnea on exertion) Code(s): R06.09 - OTHER FORMS OF DYSPNEA (5) Elevated LFTs Code(s): R94.5 - ABNORMAL RESULTS OF LIVER FUNCTION STUDIES (6) Nephrolithiasis Code(s): N20.0 - CALCULUS OF KIDNEY (7) Hypokalemia Assessment/Plan: Replete, and keep K+ 4.0-4.5 Mg WNL Code(s): E87.6 - HYPOKALEMIA (8) NSAID long-term use Assessment/Plan: Recommend stop ihgh-dose ibuprofen (pt takes it for "inflammation", but says she has never been diagnosed with RA or inflammatory disesaes.\\ Hx "sciatica". Liver abnormalities make using acetominophen problematic. If pain returns may consider Tramadol; a pain management consult would be of benefit. Code(s): Z79.1 - [employer] (CURRENT) USE OF NON-STEROIDAL NON-INFLAM (NSAID) (9) Elevated TSH Assessment/Plan: Free T4 WNL. Code(s): R79.89 - OTHER SPECIFIED ABNORMAL FINDINGS OF BLOOD CHEMISTRY (10) Diastolic CHF Code(s): I50.30 - UNSPECIFIED DIASTOLIC (CONGESTIVE) HEART FAILURE (11) Morbid obesity Code(s): E66.01 - MORBID (SEVERE) OBESITY DUE TO EXCESS CALORIES Will reduce Amlodipine to 5 QD not to contribute to lext edema GI w/u Will add Accupril 10
--- NOTE | 2019-02-06 14:05 | PN ---
Progress Note (short form) - Note Progress Note: PULMONARY States breathing better with nebulizer treatments. No cough or wheezing. Vital Signs Period Temp Pulse Resp BP Sys/Mendez Pulse Ox Last 24 Hr 97.9 F-98.8 F 75-107 20-20 115-124/50-89 93-94 Gen: NAD at rest Heart: RRR Lung: decreased breath sounds at the bases Abd: soft, nontender Ext: no edema CBC, BMP 02/06/19 06:10 02/06/19 06:10 Active Medications Albuterol/Ipratropium (Duoneb -) 1 amp NEB Q4H PRN PRN Reason: SHORTNESS OF BREATH Last Admin: 02/06/19 08:07 Dose: 1 amp Amlodipine Besylate (Norvasc -) 10 mg PO DAILY [facility] Last Admin: 02/06/19 10:31 Dose: 10 mg Furosemide (Lasix Injection -) 40 mg IVPUSH DAILY [facility] Last Admin: 02/06/19 10:31 Dose: 40 mg Heparin Sodium (Porcine) (Heparin -) 5,000 unit SQ TID [facility] Last Admin: 02/06/19 05:25 Dose: 5,000 unit Multivitamins/Minerals/Vitamin C (Tab-A-Vit -) 1 tab PO DAILY [facility] Last Admin: 02/06/19 10:31 Dose: 1 tab Tramadol HCl (Ultram -) 50 mg PO Q8H PRN PRN Reason: PAIN LEVEL 6-10 Last Admin: 02/06/19 10:31 Dose: 50 mg A/P CAD r/o COPD Morbid Obesity r/o CONNER HTN Hyperlipidemia Anemia - inhaled bronchodilators as needed - outpt PFTs, NPSG - echocardiogram - cardiac work up in progress
--- NOTE | 2019-02-06 14:39 | CONS ---
PULMONARY CONSULTATION DATE OF CONSULTATION: 02/05/2019 REFERRING PHYSICIAN: PAMELA Baker HISTORY: Patient is a 59-year-old female with past medical history of ASHD, status post UT in 2009, hypertension, hyperlipidemia, diastolic heart failure, morbid obesity, status post laparoscopic sleeve in 2013, history of CVA, history of renal stones requiring nephrostomy stent most recently in February 2018. Admitted to [facility] with shortness of breath with exertion. Patient states that for the past 6 months or so she has started noticing increasing shortness of breath and dyspnea on exertion. She states that she is only able to ambulate approximately a block before she is severely dyspneic requiring rest before proceeding. Denied any chest pain, palpitations, nausea, vomiting, or diaphoresis associated with this. She states for the past week or so her breathing has gotten worse. She also has lower extremity edema. She apparently saw her PND a few weeks ago. She was evaluated by Cardiology. She underwent a chest CTA on February 03, which revealed no evidence of pulmonary emboli, borderline cardiomegaly. No evidence of mediastinal nodes or pulmonary masses. Of note is the patient states that she is a heavy snorer. Has occasional daytime tiredness. She never had a sleep study in the past. PAST MEDICAL HISTORY: Again includes ASHD status post UT in 2009, hypertension, hyperlipidemia, diastolic heart failure, morbid obesity, likely obstructive sleep apnea, history of renal stones status post nephrostomy stent, history of vaginal bleed, anemia, CVA. REVIEW OF SYSTEMS: Positive orthopnea, positive dyspnea on exertion. No dyspnea at rest, no chest pain, no palpitations, no nausea, no vomiting. Positive mild lower extremity edema. CURRENT MEDICATIONS: Include heparin subcutaneous, Norvasc, Tab-A-Estee, and Ultram. PHYSICAL EXAMINATION: General: Patient is an obese female awake, alert in no acute distress. Vital Signs: She is afebrile. Blood pressure is 132/72, respiratory rate is 20 , O2 saturation is 95% on room air. HEENT: Normocephalic, atraumatic. Neck: Supple. Heart: Regular with S1, S2. Chest: Diminished breath sounds bilaterally. Abdomen: Soft. Bowel sounds positive. Extremities: Lower extremity edema. LABORATORIES: BUN 4.6, creatinine 0.7, bilirubin 1.1, AST 422, ALT 167, alkaline phosphatase 361, BNP 142, WBC 2.9, hemoglobin 10.8, hematocrit 32, platelet count of 202. IMPRESSION: 1. Dyspnea, etiology to be determined. Rule out possible underlying chronic obstructive pulmonary disease, rule out cardiac, arteriosclerotic heart disease , rule out secondary to morbid obesity, rule out diastolic dysfunction. 2. Arteriosclerotic heart disease status post myocardial infarction. 3. Hypertension. 4. Morbid obesity status post laparoscopic sleeve. 5. Hypertension. 6. Hyperlipidemia. 7. History of cerebrovascular accident. 8. Anemia. 9. Elevated liver function tests. PLAN: Cardiac workup as per Cardiology. Inhaled bronchodilators. Outpatient PFTs. Sleep screen. Outpatient sleep study. ABG on room air to determine if the patient has any evidence of hypoxia/hypercapnia. Ambulatory O2 saturation on room air. Monitor LFTs. DVT prophylaxis. JUAN MANUEL PUGH M.D. [id number] MTDD
--- NOTE | 2019-02-06 15:12 | PN ---
Physical Exam: SUBJECTIVE: Patient seen and examined at the bedside. patient reports she feels improved. OBJECTIVE: discharge once cleared by cardiology patient has home oxygen delivered at the bedside (portable) ------ Patient is a 59 year old female with a significant past medical history of hypertension, HLD, [place] (2010 no stent) after vaginal bleed, CVA (2009) and gastric sleeve surgery with 78 lbs weight loss since 2013. She presents to [facility] ED with chest pain, shortness of breath requiring supplemental oxygen and volume overload. Patient states that for the past 1 month she has been progressively short of breath. During this time, she has also noticed increasing lower extremity edema bilaterally, right more so than left. A right breast mass also incidentally found. Patient qualifies for home oxygen and it is to be delivered to her. She will be d/c once cardiology clears her, likely in a.m. Vital Signs Period Temp Pulse Resp BP Sys/Mendez Pulse Ox Last 24 Hr 97.9 F-98.8 F 75-87 20-20 115-124/50-89 94 GENERAL: The patient is awake, alert, and fully oriented, in no acute distress. on 2 liters of nasal cannula HEAD: Normal with no signs of trauma. EYES: PERRL, extraocular movements intact, sclera anicteric, conjunctiva clear. No ptosis. ENT: Ears normal, nares patent, oropharynx clear without exudates, moist mucous membranes. NECK: Trachea midline, full range of motion, supple. LUNGS: diminished bilaterally, on supplemental oxygen - mild wheezing of upper lobes ABDOMEN: Soft, nontender, nondistended, normoactive bowel sounds, no guarding, no rebound, no hepatosplenomegaly, no masses. EXTREMITIES: +1 bilateral lower ext edema bilaterally from her thighs to feet NEUROLOGICAL: Normal speech, gait not observed. PSYCH: Normal mood, normal affect. SKIN: Warm, dry, normal turgor, no rashes or lesions noted Laboratory Results - last 24 hr 02/06/19 02/06/19 06:10 06:10 WBC 3.4 L RBC 3.23 L Hgb 10.9 Hct 33.3 MCV 103.3 H MCH 33.6 MCHC 32.6 RDW 14.9 Plt Count 209 MPV 9.0 Absolute Neuts (auto) 1.9 Neutrophils % 55.5 Lymphocytes % 23.4 Monocytes % 19.1 H Eosinophils % 1.4 Basophils % 0.6 Nucleated RBC % 1 H Sodium 140 Potassium 3.4 L Chloride 98 Carbon Dioxide 35 H Anion Gap 6 L BUN 5.0 L Creatinine 0.7 Est GFR (CKD-EPI)AfAm 109.15 Est GFR (CKD-EPI)NonAf 94.17 Random Glucose 102 Calcium 8.8 Magnesium 2.1 Total Bilirubin 0.9 AST 366 H ALT 159 H Alkaline Phosphatase 335 H Total Protein 6.8 Albumin 2.5 L Active Medications Generic Name Dose Route Start Last Admin Trade Name Freq PRN Reason Stop Dose Admin Albuterol/Ipratropium 1 amp 02/05/19 13:51 02/06/19 08:07 Duoneb - NEB 1 amp Q4H PRN Administration SHORTNESS OF BREATH Amlodipine Besylate 5 mg 02/07/19 10:00 Norvasc - PO DAILY [facility] Furosemide 40 mg 02/05/19 16:00 02/06/19 10:31 Lasix Injection - IVPUSH 40 mg DAILY [facility] Administration Heparin Sodium (Porcine) 5,000 unit 02/03/19 22:00 02/06/19 05:25 Heparin - SQ 5,000 unit TID [facility] Administration Multivitamins/Minerals/Vitamin C 1 tab 02/04/19 10:00 02/06/19 10:31 Tab-A-Vit - PO 1 tab DAILY [facility] Administration Quinapril HCl 10 mg 02/07/19 10:00 Accupril - PO DAILY [facility] Tramadol HCl 50 mg 02/04/19 18:57 02/06/19 10:31 Ultram - PO 50 mg Q8H PRN Administration PAIN LEVEL 6-10 ASSESSMENT/PLAN: Problem List - Problems (1) Diastolic CHF Assessment/Plan: pending echo, not yet read monitor on tele start on lasix 40mg daily monitor weights, electrolytes Code(s): I50.30 - UNSPECIFIED DIASTOLIC (CONGESTIVE) HEART FAILURE (2) Chest pain Assessment/Plan: chest pain resolved troponins negative obtain echo had echo last done at her [employer] [facility] office may 2017 (dr. alexis) Code(s): R07.9 - CHEST PAIN, UNSPECIFIED (3) MCGRAW (dyspnea on exertion) Assessment/Plan: shortness of breath with exertion x several weeks with BLE swelling, negative for CTA Obtain echo to monitor EF, possible CHF? will start on lasix, daily weights and fluid restriction 1 liter per day on supplemental oxygen, at 2-3 liters, drops to 86% on room air, qualifies for home oxygen Code(s): R06.09 - OTHER FORMS OF DYSPNEA (4) Elevated LFTs Assessment/Plan: possibly secondary to fatty liver infiltration hepatitis panel noted and within normal limits will need close monitor of liver function routinely as an outpation liver u/s with fatty liver patient also consumes alcohol almost daily refer to GI for follow up as an outpatient Code(s): R94.5 - ABNORMAL RESULTS OF LIVER FUNCTION STUDIES (5) Elevated TSH Code(s): R79.89 - OTHER SPECIFIED ABNORMAL FINDINGS OF BLOOD CHEMISTRY (6) Hypokalemia Assessment/Plan: repleted Code(s): E87.6 - HYPOKALEMIA (7) Morbid obesity Assessment/Plan: outpatient follow up s/p gastric sleeve surgery a few years ago Code(s): E66.01 - MORBID (SEVERE) OBESITY DUE TO EXCESS CALORIES (8) Nephrolithiasis Assessment/Plan: monitor kidney function Code(s): N20.0 - CALCULUS OF KIDNEY (9) Breast mass in female Assessment/Plan: patient aware and for follow up mammogram as an outpatient. Code(s): N63.0 - UNSPECIFIED LUMP IN UNSPECIFIED BREAST Visit type - Emergency Visit Emergency Visit: Yes ED Registration Date: 02/05/19 Care time: The patient presented to the Emergency Department on the above date and was hospitalized for further evaluation of their emergent condition. - New Patient This patient is new to me today: No - Critical Care Critical Care patient: No - Discharge Referral Referred to [facility] Med P.C.: No
--- NOTE | 2019-02-06 15:28 | ECHO ---
Name: KENROY HAYDEE Exam:Adult Echocardiogram Study Date: 02/06/2019 10:58 AM Age: 59 yrs Reason For Study: Chest pain Height: 62 in Weight: 270 lb BSA: 2.2 m2 MMode/2D Measurements & Calculations IVSd: 1.0 cm Ao root diam: 2.9 cm LVIDd: 4.8 cm LA dimension: 3.8 cm LVIDs: 3.5 cm LVPWd: 0.96 cm EDV(Teich): 108.1 ml LVOT diam: 2.0 cm ESV(Teich): 49.3 ml LAV (MOD-bp): 47.6 ml Doppler Measurements & Calculations MV E max otis: 133.0 cm/sec Ao V2 max: 206.3 cm/sec MV A max otis: 92.4 cm/sec Ao max P.0 mmHg MV E/A: 1.4 Ao V2 mean: 112.1 cm/sec MV dec time: 0.22 sec Ao mean P.5 mmHg Ao V2 VTI: 35.1 cm JAMIE(I,D): 2.3 cm2 JAMIE(V,D): 1.9 cm2 LV V1 max P.5 mmHg MR max otis: 417.2 cm/sec LV V1 mean P.6 mmHg MR max P.6 mmHg LV V1 max: 127.3 cm/sec LV V1 mean: 89.1 cm/sec LV V1 VTI: 25.7 cm SV(LVOT): 81.1 ml TR max otis: 262.0 cm/sec TR max P.5 mmHg PA V2 max: 130.3 cm/sec Med Peak E' Otis: 9.9 cm/sec PA max P.8 mmHg Med E/e': 13.4 Lat Peak E' Otis: 12.7 cm/sec Lat E/e': 10.4 PI Vmax: 103.2 cm/sec Procedure A complete two-dimensional transthoracic echocardiogram was performed (2D, M-mode, Doppler and color flow Doppler). Left Ventricle The left ventricle is normal in size. Left ventricular systolic function is normal. Ejection Fraction = 55- 60%. No regional wall motion abnormalities noted. Right Ventricle The right ventricle is not well visualized. Atria The left atrial size is normal. Right atrial size is normal. Mitral Valve The mitral valve is normal in structure and function. There is mild mitral regurgitation. Tricuspid Valve The tricuspid valve is normal in structure and function. There is mild tricuspid regurgitation. Pulmo nary artery systolic pressure is at least 34 mmHg if RA pressure is assumed 3 mmHg. Aortic Valve There is mild aortic sclerosis.;. No aortic regurgitation is present. Pulmonic Valve The pulmonic valve is not well visualized. Great Vessels The aortic root is normal size. Pericardium/Pleura There is no pericardial effusion. Interpretation Summary The left ventricle is normal in size. Left ventricular systolic function is normal. No regional wall motion abnormalities noted. Ejection Fraction = 55-60%. The right ventricle is not well visualized. The left atrial size is normal. Right atrial size is normal. There is mild mitral regurgitation. There is mild tricuspid regurgitation. Pulmonary artery systolic pressure is at least 34 mmHg if RA pressure is assumed 3 mmHg There is mild aortic sclerosis. There is no pericardial effusion. Octavio Lockhart MD 02/06/2019 03:28 PM
[2019-02-06] MEDS ORDERED: POTASSIUM CHLORIDE TABS 20 MEQ TABLET.ER (FP) PO ONE (17:15)
[2019-02-06] MEDS ORDERED: FLU VACCINE QUAD 60 MCG/0.5 ML (MDV 19-20) IM ONE (19:00)
[2019-02-07] MEDS: traMADol HCL 50 MG TABLET PO PRN ×2 (00:29→20:34)
[2019-02-07] MEDS: HEPARIN NA (PORCINE) 5,000 UNITS/ML 1ML VIAL SQ SCH ×3 (05:54→22:45)
[2019-02-07 06:46] LABS: BASO % 0.4 % (0-2.0); EOS % 2.3 % (0-4.5); HEMATOCRIT 33.8 % (32.4-45.2); HEMOGLOBIN 11.3 GM/dL (10.7-15.3); MCH 34.4 pg (25.7-33.7); MCHC 33.3 g/dl (32.0-36.0); MEAN CELL VOLUME 103.3 fl (80-96); MEAN PLT VOLUME 8.8 fl (7.5-11.1); MONO % 22.2 % (3.8-10.2); NEUT % 51.1 % (42.8-82.8); PLATELET COUNT 214 K/MM3 (134-434); RBC 3.28 M/mm3 (3.60-5.2); RDW 14.6 % (11.6-15.6); WHITE BLOOD COUNT 3.4 K/mm3 (4.0-10.0)
[2019-02-07 07:22] LABS: ALBUMIN 2.6 g/dl (3.4-5.0); BLOOD UREA NITROGEN 5.3 mg/dL (7-18); CREATININE 0.7 mg/dL (0.55-1.3); MAGNESIUM 2.1 mg/dL (1.8-2.4); POTASSIUM 3.8 mmol/L (3.5-5.1); TOT PROT 7.1 g/dl (6.4-8.2)
--- NOTE | 2019-02-07 07:52 | DS ---
Physical Exam: SUBJECTIVE: Patient seen and examined Patient is a 59 year old female with a significant past medical history of hypertension, HLD, [place] (2010 no stent) after vaginal bleed, CVA (2009) and gastric sleeve surgery with 78 lbs weight loss since 2013. She presents to [facility] ED with chest pain, shortness of breath requiring supplemental oxygen and volume overload. Patient states that for the past 1 month she has been progressively short of breath. During this time, she has also noticed increasing lower extremity edema bilaterally, right more so than left. A right breast mass also incidentally found. Patient qualifies for home oxygen and it is to be delivered to her. She is medically cleared for discharge by pulmonary and cardiology with home services in place OBJECTIVE: Vital Signs Period Temp Pulse Resp BP Sys/Mendez Pulse Ox Last 24 Hr 97.9 F-98.9 F 62-89 18-20 123-142/58-79 93 PHYSICAL EXAM GENERAL: The patient is awake, alert, and fully oriented, in no acute distress. on 2 liters of nasal cannula HEAD: Normal with no signs of trauma. EYES: PERRL, extraocular movements intact, sclera anicteric, conjunctiva clear. No ptosis. ENT: Ears normal, nares patent, oropharynx clear without exudates, moist mucous membranes. NECK: Trachea midline, full range of motion, supple. LUNGS: diminished bilaterally, on supplemental oxygen - mild wheezing of upper lobes ABDOMEN: Soft, nontender, nondistended, normoactive bowel sounds, no guarding, no rebound, no hepatosplenomegaly, no masses. EXTREMITIES: +1 bilateral lower ext edema bilaterally from her thighs to feet NEUROLOGICAL: Normal speech, gait not observed. PSYCH: Normal mood, normal affect. SKIN: Warm, dry, normal turgor, no rashes or lesions noted LABS Laboratory Results - last 24 hr 02/07/19 02/07/19 06:05 06:05 WBC 3.4 L RBC 3.28 L Hgb 11.3 Hct 33.8 MCV 103.3 H MCH 34.4 H MCHC 33.3 RDW 14.6 Plt Count 214 MPV 8.8 Absolute Neuts (auto) 1.7 Neutrophils % 51.1 Lymphocytes % 24.0 Monocytes % 22.2 H Eosinophils % 2.3 Basophils % 0.4 Nucleated RBC % 0 Sodium 140 Potassium 3.8 Chloride 98 Carbon Dioxide 36 H Anion Gap 6 L BUN 5.3 L Creatinine 0.7 Est GFR (CKD-EPI)AfAm 109.15 Est GFR (CKD-EPI)NonAf 94.17 Random Glucose 94 Calcium 9.0 Magnesium 2.1 Total Bilirubin 1.0 AST 301 H ALT 150 H Alkaline Phosphatase 322 H Total Protein 7.1 Albumin 2.6 L HOSPITAL COURSE: Date of Admission:02/05/19 Date of Discharge: 02/07/19 - Problems (1) Diastolic CHF Assessment/Plan: TTE with mild MR/TR. Follwo with home cardioloigst c/w lasix 40mg daily monitor weights at home Code(s): I50.30 - UNSPECIFIED DIASTOLIC (CONGESTIVE) HEART FAILURE (2) Chest pain Assessment/Plan: chest pain resolved troponins negative Code(s): R07.9 - CHEST PAIN, UNSPECIFIED (3) MCGRAW (dyspnea on exertion) Assessment/Plan: shortness of breath with exertion x several weeks with BLE swelling, negative for CTA on supplemental oxygen, at 2-3 liters, drops to 86% on room air, qualifies for home oxygen Code(s): R06.09 - OTHER FORMS OF DYSPNEA (4) Elevated LFTs Assessment/Plan: possibly secondary to fatty liver infiltration hepatitis panel noted and within normal limits will need close monitor of liver function routinely as an outpation liver u/s with fatty liver patient also consumes alcohol almost daily refer to GI for follow up as an outpatient Code(s): R94.5 - ABNORMAL RESULTS OF LIVER FUNCTION STUDIES (5) Elevated TSH Code(s): R79.89 - OTHER SPECIFIED ABNORMAL FINDINGS OF BLOOD CHEMISTRY (6) Hypokalemia Assessment/Plan: repleted and resolved Code(s): E87.6 - HYPOKALEMIA (7) Morbid obesity Assessment/Plan: outpatient follow up s/p gastric sleeve surgery a few years ago Code(s): E66.01 - MORBID (SEVERE) OBESITY DUE TO EXCESS CALORIES (8) Nephrolithiasis Assessment/Plan: monitor kidney function Code(s): N20.0 - CALCULUS OF KIDNEY (9) Breast mass in female Assessment/Plan: patient aware and for follow up mammogram as an outpatient. Code(s): N63.0 - UNSPECIFIED LUMP IN U Minutes to complete discharge: 45 Discharge Summary Problems reviewed: Yes Reason For Visit: DYSPNEA ON EXERTION Current Active Problems ASHD (arteriosclerotic heart disease) (Acute) Anemia (Acute) Atypical chest pain (Acute) Breast mass in female (Acute) Chest pain (Acute) MCGRAW (dyspnea on exertion) (Acute) Diastolic CHF (Acute) Elevated LFTs (Acute) Elevated TSH (Acute) Elevated TSH (Acute) Fatty liver (Acute) H/O: CVA (cerebrovascular accident) (Acute) HTN (hypertension) (Acute) Hypokalemia (Acute) Morbid obesity (Acute) NSAID long-term use (Acute) Nephrolithiasis (Acute) Hospital Course: HOSPITAL COURSE: Date of Admission:02/05/19 Date of Discharge: 02/07/19 - Problems (1) Diastolic CHF Assessment/Plan: TTE with mild MR/TR. Follwo with home cardioloigst c/w lasix 40mg daily monitor weights at home Code(s): I50.30 - UNSPECIFIED DIASTOLIC (CONGESTIVE) HEART FAILURE (2) Chest pain Assessment/Plan: chest pain resolved troponins negative Code(s): R07.9 - CHEST PAIN, UNSPECIFIED (3) MCGRAW (dyspnea on exertion) Assessment/Plan: shortness of breath with exertion x several weeks with BLE swelling, negative for CTA on supplemental oxygen, at 2-3 liters, drops to 86% on room air, qualifies for home oxygen Code(s): R06.09 - OTHER FORMS OF DYSPNEA (4) Elevated LFTs Assessment/Plan: possibly secondary to fatty liver infiltration hepatitis panel noted and within normal limits will need close monitor of liver function routinely as an outpation liver u/s with fatty liver patient also consumes alcohol almost daily refer to GI for follow up as an outpatient Code(s): R94.5 - ABNORMAL RESULTS OF LIVER FUNCTION STUDIES (5) Elevated TSH Code(s): R79.89 - OTHER SPECIFIED ABNORMAL FINDINGS OF BLOOD CHEMISTRY (6) Hypokalemia Assessment/Plan: repleted and resolved Code(s): E87.6 - HYPOKALEMIA (7) Morbid obesity Assessment/Plan: outpatient follow up s/p gastric sleeve surgery a few years ago Code(s): E66.01 - MORBID (SEVERE) OBESITY DUE TO EXCESS CALORIES (8) Nephrolithiasis Assessment/Plan: monitor kidney function Code(s): N20.0 - CALCULUS OF KIDNEY (9) Breast mass in female Assessment/Plan: patient aware and for follow up mammogram as an outpatient. Code(s): N63.0 - UNSPECIFIED LUMP IN U Condition: Improved - Instructions Diet, Activity, Other Instructions: DISCHARGE YOUR VISIT You came to the hospital because your legs were more swollen and shortness of breath. Your breathing improved after receiving dietetics and the use of oxygen. One of the Blood pressure medciation (norvasc/amlodopine was stopped since this can cause swelling. You were seen by the corporation secretary and the box car checker. Your echocardiogram revealed minimal regurgitation for the Mitral and tricuspod valves. Follow with your home corporation secretary/ Primary care provider. You liver enzymes were slightly elevated-most likely related to diet and alcohol in take . Follow with your home GI doctor. Visiting nurse and phycial therapy was been arranged for home. They will contact you tomorrow to make arrangements for visit. MEDICATIONS Please continue to take your home medications as prescribed. There was some changes: STOPPED-->Norvasc/amlodopine. DO NOT TAKE Accupril 10mg was started in its place Lasix 40mg was started for the leg swelling You can continue the multivitamin and atorvastatin DIET Continue a low fat/low sodium portion controlled diet. It is advised that you stop the intake of alcohol and exercise daily-30 minutes of aerobic activity- start with light walking and increase activity. ADDITIONAL CARE Please make an appointment to see your primary care provider,Dr Wheatley 1 week from today. ADDITIONAL INFORMATION Please call 911 or come directly to the emergency department if you experience unusual headache, vision change, shortness of breath, chest pain, numbness, tingling, loss of alertness/awareness, loss of function, unusual bleeding or any alarming symptoms. Thank you for allowing me to care for you. Shakeel Godinez, [facility] [phone] Referrals: Nigel Wheatley [Primary Care Provider] - Abeba Robles DO [Staff Physician] - Pete Parker MD [Staff Physician] - Disposition: VNS/HOME HEALTH CARE - Home Medications Comprehensive Discharge Medication List: Ambulatory Orders Amlodipine Besylate 10 mg PO DAILY 06/04/17 Multivitamin [One-Daily Multi-Vitamin] 1 each PO DAILY 03/21/18 Atorvastatin Ca [Lipitor] 40 mg PO HS 02/03/19 Hydralazine HCl 30 mg PO DAILY 02/03/19 Prescription Drug Monitoring Program (I-STOP) results: I-STOP not reviewed This patient is new to me today: Yes Date on this admission: 02/07/19 Emergency Visit: Yes ED Registration Date: 02/05/19 Care time: The patient presented to the Emergency Department on the above date and was hospitalized for further evaluation of their emergent condition. Critical Care patient: No - Discharge Referral Referred to [facility] Med P.C.: No
[2019-02-07] MEDS ORDERED: PT OWN MED DRAWER 7, Y5N ONE (09:26)
[2019-02-07] MEDS: MULTIVITAMINS (DAILY MVI) TABLET (FP) PO SCH (09:44)
[2019-02-07] MEDS: FUROSEMIDE 40 MG/4 ML INJECTABLE VIAL IVPUSH SCH (09:44)
[2019-02-07] MEDS ORDERED: QUINAPRIL HCL 10 MG TABLET (FP) PO SCH (10:00)
[2019-02-07] MEDS ORDERED: amLODIPine BESYLATE 5 MG TABLET (FP) PO SCH (10:00)
[2019-02-07 10:11] LABS: ANISOCYTOSIS 1+; MACROCYTOSIS 1+; OVALOCYTE 1+
[2019-02-07 11:06] LABS: PLATELET ESTIMATE ADEQUATE
[2019-02-07 11:50] VITALS: BMI 49.1
--- NOTE | 2019-02-07 12:33 | PN ---
Progress Note, Physician Chief Complaint: Pt A&OZ3; mcgraw not want to go home. History of Present Illness: 59-year-old black female with history of kidney stones requiring nephrostomy stent most recently in February 2018, morbid obesity, diastolic CHF, HTN, HLD, NSTEMI 2009 due to severe vaginal bleed (2009 post-DE coronary angiogram showed nonobstrucitve disease; no ischemia on 05/2017 stress MIBI); TIA in 2009, presenting with shortness of breath with exertion x several weeks, a/w BLE swelling chest pain this morning +LE swelling, saw PMD several weeks ago +right breast mass Pt hx 3 alcoholic drinks every night. Meds at home: amlodipine, metoprolol ER, furosemide. - Current Medication List Current Medications: Active Medications Albuterol/Ipratropium (Duoneb -) 1 amp NEB Q4H PRN PRN Reason: SHORTNESS OF BREATH Last Admin: 02/06/19 08:07 Dose: 1 amp Furosemide (Lasix Injection -) 40 mg IVPUSH DAILY [facility] Last Admin: 02/07/19 09:44 Dose: 40 mg Heparin Sodium (Porcine) (Heparin -) 5,000 unit SQ TID [facility] Last Admin: 02/07/19 05:54 Dose: 5,000 unit Multivitamins/Minerals/Vitamin C (Tab-A-Vit -) 1 tab PO DAILY [facility] Last Admin: 02/07/19 09:44 Dose: 1 tab Quinapril HCl (Accupril -) 10 mg PO DAILY [facility] Last Admin: 02/07/19 09:41 Dose: 10 mg Tramadol HCl (Ultram -) 50 mg PO Q8H PRN PRN Reason: PAIN LEVEL 6-10 Last Admin: 02/07/19 00:29 Dose: 50 mg - Objective Vital Signs: Vital Signs Temperature 98.5 F 02/07/19 10:00 Pulse Rate 73 02/07/19 10:00 Respiratory Rate 18 02/07/19 10:00 Blood Pressure 138/74 02/07/19 10:00 O2 Sat by Pulse Oximetry (%) 94 L 02/07/19 09:00 Constitutional: Yes: Anxious Eyes: Yes: WNL HENT: Yes: WNL Neck: Yes: WNL Cardiovascular: Yes: WNL Respiratory: Yes: WNL Gastrointestinal: Yes: Soft, Abdomen, Obese ...Rectal Exam: Yes: Deferred Genitourinary: No: Anuria Breast(s): Yes: WNL Musculoskeletal: Yes: Joint Stiffness Extremities: Yes: Cool Edema: No Peripheral Pulses WNL: Yes Integumentary: Yes: WNL Neurological: Yes: WNL Psychiatric: Yes: Alert, Oriented Labs: CBC, BMP 02/07/19 06:05 02/07/19 06:05 INR, PTT INR 1.08 (0.83-1.09) 02/04/19 05:35 Abnormal Lab Results 02/07/19 02/07/19 06:05 06:05 WBC 3.4 L RBC 3.28 L MCV 103.3 H MCH 34.4 H Monocytes % 22.2 H Monocytes % (Manual) 22 H Eosinophils % (Manual) 4.9 H Carbon Dioxide 36 H Anion Gap 6 L BUN 5.3 L AST 301 H ALT 150 H Alkaline Phosphatase 322 H Albumin 2.6 L - ....Imaging Chest X-ray: Image Reviewed EKG: Image Reviewed Other: Image Reviewed (telemetry: NSR) Problem List - Problems (1) Atypical chest pain Assessment/Plan: TNI < 0.02 x 2. EKG: NSR; old anterior wall DE (noted on EKG from 2010 as well); no acute STT changes. ECHO: normal LVEF Plan: Discontinure telemetry monitoring. From a cardiac standpoint, pt may be followed as an outpatient. Code(s): R07.89 - OTHER CHEST PAIN (2) HTN (hypertension) Code(s): I10 - ESSENTIAL (PRIMARY) HYPERTENSION Qualifiers: Hypertension type: essential hypertension Qualified Code(s): I10 - Essential (primary) hypertension (3) Anemia Code(s): D64.9 - ANEMIA, UNSPECIFIED (4) MCGRAW (dyspnea on exertion) Code(s): R06.09 - OTHER FORMS OF DYSPNEA (5) Elevated LFTs Code(s): R94.5 - ABNORMAL RESULTS OF LIVER FUNCTION STUDIES (6) Nephrolithiasis Code(s): N20.0 - CALCULUS OF KIDNEY (7) Hypokalemia Code(s): E87.6 - HYPOKALEMIA (8) NSAID long-term use Code(s): Z79.1 - GROUP HOME (CURRENT) USE OF NON-STEROIDAL NON-INFLAM (NSAID) (9) Elevated TSH Code(s): R79.89 - OTHER SPECIFIED ABNORMAL FINDINGS OF BLOOD CHEMISTRY (10) Diastolic CHF Code(s): I50.30 - UNSPECIFIED DIASTOLIC (CONGESTIVE) HEART FAILURE (11) Morbid obesity Code(s): E66.01 - MORBID (SEVERE) OBESITY DUE TO EXCESS CALORIES
--- NOTE | 2019-02-07 12:43 | PN ---
Progress Note (short form) - Note Progress Note: PULMONARY States breathing better. No cough or wheezing. Vital Signs Period Temp Pulse Resp BP Sys/Mendez Pulse Ox Last 24 Hr 97.9 F-98.9 F 73-89 18-20 123-142/58-79 93-94 Gen: NAD at rest Heart: RRR Lung: decreased breath sounds at the bases Abd: soft, nontender Ext: no edema CBC, BMP 02/07/19 06:05 02/07/19 06:05 Active Medications Albuterol/Ipratropium (Duoneb -) 1 amp NEB Q4H PRN PRN Reason: SHORTNESS OF BREATH Last Admin: 02/06/19 08:07 Dose: 1 amp Furosemide (Lasix Injection -) 40 mg IVPUSH DAILY [facility] Last Admin: 02/07/19 09:44 Dose: 40 mg Heparin Sodium (Porcine) (Heparin -) 5,000 unit SQ TID [place] Last Admin: 02/07/19 05:54 Dose: 5,000 unit Multivitamins/Minerals/Vitamin C (Tab-A-Vit -) 1 tab PO DAILY [place] Last Admin: 02/07/19 09:44 Dose: 1 tab Quinapril HCl (Accupril -) 10 mg PO DAILY [place] Last Admin: 02/07/19 09:41 Dose: 10 mg Tramadol HCl (Ultram -) 50 mg PO Q8H PRN PRN Reason: PAIN LEVEL 6-10 Last Admin: 02/07/19 00:29 Dose: 50 mg A/P CAD r/o COPD Morbid Obesity r/o CONNER HTN Hyperlipidemia Anemia - inhaled bronchodilators as needed - outpt PFTs, NPSG - can be discharged from pulmonary standpoint
[2019-02-07] MEDS ORDERED: hydrALAZINE HCL 10 MG TABLET PO SCH (13:00)
[2019-02-07] MEDS: ALBUTEROL SO4 2.5/IPRATROPIUM 0.5 INH SOL 3 ML VIAL.NEB. NEB SCH ×2 (16:25→20:00)
[2019-02-08] MEDS: HEPARIN NA (PORCINE) 5,000 UNITS/ML 1ML VIAL SQ SCH ×3 (06:25→22:39)
[2019-02-08] MEDS: traMADol HCL 50 MG TABLET PO PRN ×3 (06:26→22:38)
--- NOTE | 2019-02-08 07:37 | PN ---
Progress Note (short form) - Note Progress Note: Patient is a 59 year old female with a significant past medical history of hypertension, HLD, [place] (2010 no stent) after vaginal bleed, CVA (2009) and gastric sleeve surgery with 78 lbs weight loss since 2013. She presents to [facility] ED with chest pain, shortness of breath requiring supplemental oxygen and volume overload. Patient states that for the past 1 month she has been progressively short of breath. During this time, she has also noticed increasing lower extremity edema bilaterally, right more so than left. A right breast mass also incidentally found. Patient qualifies for home oxygen and it is to be delivered to her. She is medically cleared for discharge by pulmonary and cardiology with home services in place. Pt was discharged yesterday, appealed dc and lost. Still medically stable for discharge however pt said she is not leaving until tmrw morning PHYSICAL EXAM GENERAL: The patient is awake, alert, and fully oriented, in no acute distress. on 2 liters of nasal cannula HEAD: Normal with no signs of trauma. EYES: PERRL, extraocular movements intact, sclera anicteric, conjunctiva clear. No ptosis. ENT: Ears normal, nares patent, oropharynx clear without exudates, moist mucous membranes. NECK: Trachea midline, full range of motion, supple. LUNGS: diminished bilaterally, on supplemental oxygen - mild wheezing of upper lobes ABDOMEN: Soft, nontender, nondistended, normoactive bowel sounds, no guarding, no rebound, no hepatosplenomegaly, no masses. EXTREMITIES: +1 bilateral lower ext edema bilaterally from her thighs to feet NEUROLOGICAL: Normal speech, gait not observed. PSYCH: Normal mood, normal affect. SKIN: Warm, dry, normal turgor, no rashes or lesions noted Problem List - Problems (1) Breast mass in female Code(s): N63.0 - UNSPECIFIED LUMP IN UNSPECIFIED BREAST (2) Diastolic CHF Code(s): I50.30 - UNSPECIFIED DIASTOLIC (CONGESTIVE) HEART FAILURE (3) Elevated LFTs Code(s): R94.5 - ABNORMAL RESULTS OF LIVER FUNCTION STUDIES (4) Elevated TSH Code(s): R79.89 - OTHER SPECIFIED ABNORMAL FINDINGS OF BLOOD CHEMISTRY (5) Fatty liver Code(s): K76.0 - FATTY (CHANGE OF) LIVER, NOT ELSEWHERE CLASSIFIED Visit type - Emergency Visit Emergency Visit: Yes ED Registration Date: 02/05/19 Care time: The patient presented to the Emergency Department on the above date and was hospitalized for further evaluation of their emergent condition. - New Patient This patient is new to me today: No - Critical Care Critical Care patient: No - Discharge Referral [facility]erred to [facility] Med P.C.: No
[2019-02-08 07:50] LABS: BASO % 0.5 % (0-2.0); EOS % 1.8 % (0-4.5); HEMATOCRIT 33.2 % (32.4-45.2); LYMPH % 26.5 % (8-40); MEAN PLT VOLUME 9.3 fl (7.5-11.1); MONO % 20.1 % (3.8-10.2); NEUT % 51.1 % (42.8-82.8); PLATELET COUNT 217 K/MM3 (134-434); RBC 3.22 M/mm3 (3.60-5.2); RDW 14.7 % (11.6-15.6); WHITE BLOOD COUNT 3.8 K/mm3 (4.0-10.0)
[2019-02-08 07:53] LABS: ALBUMIN 2.6 g/dl (3.4-5.0); BILIRUBIN,TOTAL 0.8 mg/dL (0.2-1); BLOOD UREA NITROGEN 6.6 mg/dL (7-18); CALCIUM 8.8 mg/dL (8.5-10.1); CREATININE 0.8 mg/dL (0.55-1.3); MAGNESIUM 1.9 mg/dL (1.8-2.4); POTASSIUM 3.7 mmol/L (3.5-5.1); TOT PROT 6.8 g/dl (6.4-8.2)
[2019-02-08] MEDS ORDERED: PT OWN MED DRAWER 7, Y5N ONE ×2 (08:04→09:26)
[2019-02-08] MEDS: FUROSEMIDE 40 MG TABLET (FP) PO SCH ×2 (08:09→10:07)
[2019-02-08] MEDS: MULTIVITAMINS (DAILY MVI) TABLET (FP) PO SCH ×2 (08:09→10:07)
[2019-02-08] MEDS: ALBUTEROL SO4 2.5/IPRATROPIUM 0.5 INH SOL 3 ML VIAL.NEB. NEB SCH ×4 (09:15→20:32)
[2019-02-08] MEDS ORDERED: FUROSEMIDE 40 MG TABLET (FP) PO SCH (10:00)
[2019-02-08] MEDS: QUINAPRIL HCL 10 MG TABLET (FP) PO SCH (10:07)
[2019-02-08 11:41] LABS: ANISOCYTOSIS 0; MACROCYTOSIS 1+; PLATELET ESTIMATE NORMAL; TARGET CELLS 1+
--- NOTE | 2019-02-08 14:04 | PN ---
Progress Note, Physician History of Present Illness: PULMONARY ALERT,COMFORTABLE,-SOB - Current Medication List Current Medications: Active Medications Albuterol/Ipratropium (Duoneb -) 1 amp NEB RQID [facility] Furosemide (Lasix -) 40 mg PO DAILY [facility] Last Admin: 02/08/19 10:07 Dose: Not Given Heparin Sodium (Porcine) (Heparin -) 5,000 unit SQ TID [facility] Last Admin: 02/08/19 06:25 Dose: 5,000 unit Multivitamins/Minerals/Vitamin C (Tab-A-Vit -) 1 tab PO DAILY [facility] Last Admin: 02/08/19 10:07 Dose: Not Given Quinapril HCl (Accupril -) 10 mg PO DAILY [facility] Last Admin: 02/08/19 10:07 Dose: 10 mg Tramadol HCl (Ultram -) 50 mg PO Q8H PRN PRN Reason: PAIN LEVEL 6-10 Last Admin: 02/08/19 06:26 Dose: 50 mg - Objective Vital Signs: Vital Signs Temperature 98.0 F 02/08/19 08:05 Pulse Rate 71 02/08/19 08:05 Respiratory Rate 18 02/08/19 08:05 Blood Pressure 139/68 02/08/19 08:05 O2 Sat by Pulse Oximetry (%) 92 L 02/08/19 08:05 Constitutional: Yes: Well Nourished, Calm, Obese Eyes: Yes: WNL HENT: Yes: WNL Neck: Yes: WNL Cardiovascular: Yes: Regular Rate and Rhythm, S1, S2 Respiratory: Yes: Other (DECREASED BS BILATERALLY) Gastrointestinal: Yes: Normal Bowel Sounds, Soft Extremities: Yes: WNL Edema: No Labs: CBC, BMP 02/08/19 06:45 02/08/19 06:45 INR, PTT INR 1.08 (0.83-1.09) 02/04/19 05:35 Problem List - Problems (1) ASHD (arteriosclerotic heart disease) Code(s): I25.10 - ATHSCL HEART DISEASE OF [place] CORONARY ARTERY W/O ANG PCTRS (2) Anemia Code(s): D64.9 - ANEMIA, UNSPECIFIED (3) MCGRAW (dyspnea on exertion) Code(s): R06.09 - OTHER FORMS OF DYSPNEA (4) Diastolic CHF Code(s): I50.30 - UNSPECIFIED DIASTOLIC (CONGESTIVE) HEART FAILURE (5) Fatty liver Code(s): K76.0 - FATTY (CHANGE OF) LIVER, NOT ELSEWHERE CLASSIFIED (6) HTN (hypertension) Code(s): I10 - ESSENTIAL (PRIMARY) HYPERTENSION Qualifiers: Hypertension type: essential hypertension Qualified Code(s): I10 - Essential (primary) hypertension (7) Morbid obesity Code(s): E66.01 - MORBID (SEVERE) OBESITY DUE TO EXCESS CALORIES (8) H/O: CVA (cerebrovascular accident) Code(s): Z86.73 - PRSNL HX OF TIA (TIA), AND CEREB INFRC W/O RESID DEFICITS Assessment/Plan A/P CAD r/o COPD Morbid Obesity r/o CONNER HTN Hyperlipidemia Anemia - inhaled bronchodilators as needed - outpt PFTs, NPSG - ambulatory o2 sat on ra DR PUGH
--- NOTE | 2019-02-08 14:46 | PN ---
Progress Note, Physician History of Present Illness: 59-year-old black female with history of kidney stones requiring nephrostomy stent most recently in February 2018, morbid obesity, diastolic CHF, HTN, HLD, NSTEMI 2010 due to severe vaginal bleed (2009 post-VT coronary angiogram showed nonobstrucitve disease; no ischemia on 05/2017 stress MIBI); TIA in 2009, presenting with shortness of breath with exertion x several weeks, a/w BLE swelling chest pain this morning +LE swelling, saw PMD several weeks ago +right breast mass Pt hx 3 alcoholic drinks every night. Meds at home: amlodipine, metoprolol ER, furosemide. PMH Non-stemi due to severe anemia from vaginal bleeding at [facility] September 2009. Cardiac catherization normal coronary arteries 2009. 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 TIA 2009. Bariatric surgery and hysterectomy 2011. Exercise MIBI stress test was negative in May 2017 ECHO May 2018 Conclusions 1. This was a technically difficult study with suboptimal views. 2. Left ventricular systolic function is normal with an estimated EF of >70%. 3. Mitral Doppler inflow pattern suggests diastolic filling abnormality. 4. No regional wall motion abnormalities were noted. 5. The left atrium is moderately dilated. 6. Mild mitral regurgitation is present. 7. Trace tricuspid regurgitation present. 8. Right ventricular systolic pressure is normal at < 35 mmHg. Date 05/27/2018 10:25 Electronically signed off - Current Medication List Current Medications: Active Medications Albuterol/Ipratropium (Duoneb -) 1 amp NEB RQID [facility] Last Admin: 02/08/19 14:41 Dose: 1 amp Furosemide (Lasix -) 40 mg PO DAILY [facility] Last Admin: 02/08/19 10:07 Dose: Not Given Heparin Sodium (Porcine) (Heparin -) 5,000 unit SQ TID [facility] Last Admin: 02/08/19 14:28 Dose: 5,000 unit Multivitamins/Minerals/Vitamin C (Tab-A-Vit -) 1 tab PO DAILY [facility] Last Admin: 02/08/19 10:07 Dose: Not Given Quinapril HCl (Accupril -) 10 mg PO DAILY [facility] Last Admin: 02/08/19 10:07 Dose: 10 mg Tramadol HCl (Ultram -) 50 mg PO Q8H PRN PRN Reason: PAIN LEVEL 6-10 Last Admin: 02/08/19 14:27 Dose: 50 mg - Objective Vital Signs: Vital Signs Temperature 98.0 F 02/08/19 08:05 Pulse Rate 71 02/08/19 08:05 Respiratory Rate 18 02/08/19 08:05 Blood Pressure 139/68 02/08/19 08:05 O2 Sat by Pulse Oximetry (%) 92 L 02/08/19 08:05 Eyes: Yes: WNL, Conjunctiva Clear, EOM Intact HENT: Yes: WNL, Atraumatic, Normocephalic Neck: Yes: WNL, Supple, Trachea Midline Cardiovascular: Yes: WNL, Regular Rate and Rhythm Respiratory: Yes: WNL, Regular, CTA Bilaterally Gastrointestinal: Yes: WNL, Normal Bowel Sounds Genitourinary: Yes: WNL Musculoskeletal: Yes: WNL Extremities: Yes: WNL Edema: Yes Edema: LLE: Trace, RLE: Trace Integumentary: Yes: WNL Neurological: Yes: WNL, Alert, Oriented ...Motor Strength: WNL Psychiatric: Yes: WNL Labs: CBC, BMP 02/08/19 06:45 02/08/19 06:45 INR, PTT INR 1.08 (0.83-1.09) 02/04/19 05:35 Assessment/Plan - Problems (1) Atypical chest pain Assessment/Plan: TNI < 0.02 x 2. EKG: NSR; old anterior wall VT (noted on EKG from 2009 as well); no acute STT changes. ECHO: normal LVEF Plan: Discontinure telemetry monitoring. From a cardiac standpoint, pt may be followed as an outpatient. Code(s): R07.89 - OTHER CHEST PAIN (2) HTN (hypertension) Code(s): I10 - ESSENTIAL (PRIMARY) HYPERTENSION Qualifiers: Hypertension type: essential hypertension Qualified Code(s): I10 - Essential (primary) hypertension (3) Anemia Code(s): D64.9 - ANEMIA, UNSPECIFIED (4) MCGRAW (dyspnea on exertion) Code(s): R06.09 - OTHER FORMS OF DYSPNEA (5) Elevated LFTs Code(s): R94.5 - ABNORMAL RESULTS OF LIVER FUNCTION STUDIES (6) Nephrolithiasis Code(s): N20.0 - CALCULUS OF KIDNEY (7) Hypokalemia Code(s): E87.6 - HYPOKALEMIA (8) NSAID long-term use Code(s): Z79.1 - CTC OPERATOR (CURRENT) USE OF NON-STEROIDAL NON-INFLAM (NSAID) (9) Elevated TSH Code(s): R79.89 - OTHER SPECIFIED ABNORMAL FINDINGS OF BLOOD CHEMISTRY (10) Diastolic CHF Code(s): I50.30 - UNSPECIFIED DIASTOLIC (CONGESTIVE) HEART FAILURE (11) Morbid obesity Code(s): E66.01 - MORBID (SEVERE) OBESITY DUE TO EXCESS CALORIES
[2019-02-09] MEDS: HEPARIN NA (PORCINE) 5,000 UNITS/ML 1ML VIAL SQ SCH (06:26)
--- NOTE | 2019-02-09 07:57 | PN ---
Progress Note (short form) - Note Progress Note: Patient is a 59 year old female with a significant past medical history of hypertension, HLD, PR (2010 no stent) after vaginal bleed, CVA (2009) and gastric sleeve surgery with 78 lbs weight loss since 2013. She presents to [facility] ED with chest pain, shortness of breath requiring supplemental oxygen and volume overload. Patient states that for the past 1 month she has been progressively short of breath. During this time, she has also noticed increasing lower extremity edema bilaterally, right more so than left. A right breast mass also incidentally found. Patient qualifies for home oxygen and it is to be delivered to her. She is medically cleared for discharge by pulmonary and cardiology with home services in place. Pt was discharged yesterday, appealed dc and lost. Still medically stable for discharge. Pt stated she will leave today by 11am PHYSICAL EXAM GENERAL: The patient is awake, alert, and fully oriented, in no acute distress. on 2 liters of nasal cannula HEAD: Normal with no signs of trauma. EYES: PERRL, extraocular movements intact, sclera anicteric, conjunctiva clear. No ptosis. ENT: Ears normal, nares patent, oropharynx clear without exudates, moist mucous membranes. NECK: Trachea midline, full range of motion, supple. LUNGS: diminished bilaterally, on supplemental oxygen - mild wheezing of upper lobes ABDOMEN: Soft, nontender, nondistended, normoactive bowel sounds, no guarding, no rebound, no hepatosplenomegaly, no masses. EXTREMITIES: +1 bilateral lower ext edema bilaterally from her thighs to feet NEUROLOGICAL: Normal speech, gait not observed. PSYCH: Normal mood, normal affect. SKIN: Warm, dry, normal turgor, no rashes or lesions noted Problem List - Problems (1) Breast mass in female Code(s): N63.0 - UNSPECIFIED LUMP IN UNSPECIFIED BREAST (2) Diastolic CHF Code(s): I50.30 - UNSPECIFIED DIASTOLIC (CONGESTIVE) HEART FAILURE (3) Elevated LFTs Code(s): R94.5 - ABNORMAL RESULTS OF LIVER FUNCTION STUDIES (4) Elevated TSH Code(s): R79.89 - OTHER SPECIFIED ABNORMAL FINDINGS OF BLOOD CHEMISTRY (5) Fatty liver Code(s): K76.0 - FATTY (CHANGE OF) LIVER, NOT ELSEWHERE CLASSIFIED Visit type - Emergency Visit Emergency Visit: Yes ED Registration Date: 02/05/19 Care time: The patient presented to the Emergency Department on the above date and was hospitalized for further evaluation of their emergent condition. - New Patient This patient is new to me today: No - Critical Care Critical Care patient: No - Discharge Referral Referred to [facility] Med [facility].C[facility] No
[2019-02-09] MEDS: ALBUTEROL SO4 2.5/IPRATROPIUM 0.5 INH SOL 3 ML VIAL.NEB. NEB SCH (08:44)
[2019-02-09] MEDS ORDERED: PT OWN MED DRAWER 7, Y5N ONE (09:33)
[2019-02-09] MEDS: MULTIVITAMINS (DAILY MVI) TABLET (FP) PO SCH (09:43)
[2019-02-09] MEDS: FUROSEMIDE 40 MG TABLET (FP) PO SCH (09:43)
[2019-02-09] MEDS: QUINAPRIL HCL 10 MG TABLET (FP) PO SCH (10:27)
[2019-02-09 11:40] VITALS: BP 157/83; PULSE 85; TEMP 98.7
== END 2019-02-09 12:13 | disposition home health service (06) | DRG 198 ==
LOC: JER 10:02 → JERBED 15:21 → J4W 18:21 → OBSVTOIN 02-05 13:29 → J5S 02-07 18:30
PROVIDERS: ATTEND Nurse Practitioner Acute Care
DX: I25.10 Atherosclerotic heart disease of native coronary artery without angina pectoris (principal); E66.01 Morbid (severe) obesity due to excess calories; R74.0 Nonspecific elevation of levels of transaminase and lactic acid dehydrogenase [LDH]; I10 Essential (primary) hypertension; E78.5 Hyperlipidemia, unspecified; R07.89 Other chest pain; D64.9 Anemia, unspecified; N63.0 Unspecified lump in unspecified breast; R09.02 Hypoxemia; Z68.41 Body mass index [BMI] 40.0-44.9, adult; J44.9 Chronic obstructive pulmonary disease, unspecified; I50.30 Unspecified diastolic (congestive) heart failure; K76.0 Fatty (change of) liver, not elsewhere classified; E87.6 Hypokalemia
CPT/HCPCS: 36415; 36600; 71045-TC-FY; 71275-TC; 76604; 76705-TC; 80053; 80061; 80074; 80307; 81003; 82607; 82746; 82803; 83036; 83721; 83735; 83880; 84100; 84439; 84443; 84481; 84484; 85025; 85610; 85730; 87086; 93005; 93010; 93306-TC; 93308; 93970-TC; 94640; 94761; 97116-GP; 97161-GP; 99285-25; G0008; G0378; J1644; Q2036; Q9967